=== PATIENT | male | born 1940 | race Caucasian/White ===

== ENCOUNTER 2021-04-13 09:50 | Day surgery (SDC) | payer OTHER ==
[2021-04-12 11:53] LABS: Absolute Lymphocytes (CBC) 1.9 K/uL (0.7-4.9); Hematocrit 42.8 % (39.6-49.0); Lymphocytes % 20.8 % (15.3-44.8); MPV 8.5 fL (7.6-11.3); RBC Red Blood Cell Count 4.53 M/uL (4.33-5.43)
[2021-04-12 11:57] LABS: Protime INR 0.98
[2021-04-12 12:04] LABS: Potassium 5.8 mmol/L (3.5-5.1)
--- NOTE | 2021-04-12 12:31 | RAD REPORT ---
EXAM DESCRIPTION: RAD - Chest Pa And Lat (2 Views) - 04/12/2021 11:43 am CLINICAL HISTORY: preop COMPARISON: Chest Pa And Lat (2 Views) dated 06/09/2020; Chest Pa And Lat (2 Views) dated 11/03/2018; C hest Pa And Lat (2 Views) dated 02/13/2018; Chest Pa And Lat (2 Views) dated 03/19/2017 FINDINGS: Normal heart size. No evidence of edema or pneumonia. No fractures are identified. Visuali zed upper abdomen is unremarkable. IMPRESSION: No acute cardiopulmonary disease.
[~2021-04-13 09:50] MED LIST: HEPA 1000U/500MLS 1,000 UNIT/500 ML BAG IV ONE
[2021-04-13] MEDS ORDERED: NA CHLORIDE 0.9% 500 ML ONE (10:07)
[2021-04-13] MEDS ORDERED: MIDAZOLAM HCL 2 MG/2 ML INJ ONE (10:53)
[2021-04-13] MEDS ORDERED: ATROPINE SULF 1 MG/10 ML SYR IV ONE (10:53)
[2021-04-13] MEDS ORDERED: NA CHLORIDE 0.9% 0 ML ONE (10:53)
[2021-04-13] MEDS ORDERED: FENTANYL CITR 100 MCG/2 ML ONE (10:53)
[2021-04-13] MEDS ORDERED: ACETYLCYST 20% 4 ML VIAL IH ONE (11:05)
[2021-04-13 12:42] VITALS: O2SAT 100
[2021-04-13 12:52] VITALS: BP 102/71; TEMP 96.4
--- NOTE | 2021-04-13 13:17 | OP ---
Date of Procedure: 04/13/2021 Surgeon: Rodrigo Garland MD Photographic Plate Maker: Mr. Wayne Puentes The patient was brought as an outpatient today on 04/13/2021 for a heart catheterization, selective c oronary arteriogram. Indication: Unstable angina and history of coronary artery disease. Procedure In Detail: Mr. Coleman was prepped and draped in routine sterile fashion. Given Versed a nd fentanyl for IV sedation. A 6-Fijian sheath was introduced in the right common femoral artery suc cessfully that was using the Seldinger technique and 10 cc of xylocaine. Angiography there was lindy l. Angio-Seal was used to close the case. Cirilo catheter left and right were used to do the lili terization. He had a normal left main. He had diffuse plaquing in the distal LAD. He had diffuse p laquing in the proximal LAD with about 20% to 30% stenosis proximally before the first diagonal. The circumflex itself had about a 30% stenosis in the mid circumflex. OM had about a 20% to 30% ostial circumflex stenosis. He had a patent LAD stent. He also had a patent RCA stent. RCA however was di ffusely diseased and was nondominant. He was left dominant. He tolerated the procedure well. There were no complications. Blood Loss: 5 mL. Postoperative Diagnosis: Moderate to severe coronary artery disease. Plan: To continue medical therapy. Anesthesia: Total conscious sedation was 45 minutes. The patient will remain in the hospital for 2 hours of bedrest and he will go home on his home medica tion. He will be seen in the office in the next 2 weeks. LENNY/HAN Voice ID: [id number] Report ID: [id number]
== END 2021-04-13 13:13 | disposition home or self-care (01) ==
LOC: CCL 09:50
DX: I25.110 Atherosclerotic heart disease of native coronary artery with unstable angina pectoris (principal); I65.21 Occlusion and stenosis of right carotid artery; I12.9 Hypertensive chronic kidney disease with stage 1 through stage 4 chronic kidney disease, or unspecified chronic kidney disease; E11.22 Type 2 diabetes mellitus with diabetic chronic kidney disease; N18.2 Chronic kidney disease, stage 2 (mild); E78.5 Hyperlipidemia, unspecified; Z95.5 Presence of coronary angioplasty implant and graft
CPT/HCPCS: 85025; 80048; 36415 ×2; 84132; 85610; 82947; 85730; 71046; 93454; C1893; C1760; J2250; J3010; J7040; J1644; J0583

== ENCOUNTER 2023-03-29 12:20 | Emergency (ER) | payer OTHER ==
--- OUTSIDE RECORDS SUMMARY | 2023-03-29 12:31 | XMS REPORT | Continuity of Care Document ---
:1940 Author Organization [facility] t Address [address] [facility] [address] [place] [address] Care Team Providers Name Role Phone Asked, No Pcp Primary Care Physician Unavailable Heriberto Venegas Attending Clinician Unavailable Tee Attending Clinician Unavailable Silas Ponce Attending Clinician [phone] Silas Ponce Attending Clinician Unavailable Olga Lew RN Attending Clinician Unavailable Only, Ang Db Test Attending Clinician Unavailable Gilberto Christianson Attending Clinician GILBERTO SIMPSON Attending Clinician Unavailable Heriberto Venegas Admitting Clinician Unavailable Tee Admitting Clinician Unavailable Payers Payer Name Policy Type Policy Number Effective Date Expiration Date S [facility] [id number] (MEDICARE REPLACEMENT/[employer] - PPO) COVID VACCINE ADMIN [id number] 2020-11-03 / TESTING 00:00:00 Problems Condition Condition Condition Status Onset Resolution Last Treating Co mments Source Name Details Category Date Date Treatment Clinician Date Tear of Tear of Problem Active Gi right Right 727 Orthope rotator Rotator 00:00: dic cuff Cuff 00 [facility] Tear of Tear of Problem Active Gi left Left 7-27 Orthope rotator Rotator 00:00: dic cuff Cuff 00 Sports [facility] Pain of Pain of Problem Active Gi right Right 7-25 Orth[facility] shoulder Shoulder 00:00: dic joint Joint 00 Sports Medic[facility] e Pain of Pain of Problem Active Gi left Left 7-25 Orth[facility] shoulder Shoulder 00:00: dic joint Joint 00 Sports Medic[facility] e 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 2-16 Or thope knee joint Knee Joint 00:00: di c 00 Sports Medicin e Diabetes Diabetes Problem Active Azale a mellitus Mellitus 4-07 Orthop e 00:00: dic 00 Sports Medic[facility] e Lumbosacra Lumbosacra Problem Active A bennieandia l l 4-07 Orthope spondylosi Spondylosi 00:00: di c s with s with 00 Sports radiculopa Radiculopa Me dicin thy thy e 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 00:00: dic 00 Sports Medicin e 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 00:00: di c itis itis 00 Sports Medicin e Lumbar Lumbar Problem Active Gi radiculopa Radiculopa 7-18 Or thope thy thy 00:00: dic 00 Sports Medic[facility] e Viral Viral Problem Active Gi hepatitis Hepatitis 7-15 Orth ope C C 00:00: dic 00 Sports Medic[facility] e Pain of Pain of Problem Active Gi left hip Left Hip 7-15 Orthop e joint Joint 00:00: dic 00 Sports Medicin e Allergies, Adverse Reactions, Alerts Allergy Allergy Status Severity Reaction(s) Onset Inactive Treating Comm ents Source Name Type Date Date Clinician No Known DA Active [facility] 06[facility]07 [facility] [place] NO KNOWN Drug Active [facility] Social History Social Habit Start Date Stop Date Quantity Comments Source Gender identity [facility] Exposure to Yes [facility] SARS-CoV-2 (event) [facility] Sex Assigned At [birth year] DANIEL Gregg [facility] Smoking Status Start Date Stop Date Source Never Smoker Gi [facility] Tobacco smoking consumption [facility] unknown Medications Ordered Filled Start Stop Current Ordering Indication Dosage Frequency Signature Comments Components Source Medication Medication Date Date Medication? Clinician (SIG) Name Name hydrocodone hydrocodone No hydrocodon Gi 7.5 7.5 2-01 e 7.5 Orthope mg-acetamin mg-acetamin 00:00: mg-acetami dic ophen 325 ophen 325 00 nophen 325 Sports mg tablet mg tablet mg tablet Medicin Take 1 Take 1 Take 1 e tablet by tablet by tablet by mouth every mouth every mouth four to six four to six every four hours as hours as to six needed for needed for hours as pain pain needed for pain No known 2020-10 No [facility] medications 2- [facility]y of 11:46: [address] No known 2020-10 No [facility] medications 2 ity of 11:46: [address] Voltaren 1 Voltaren 1 No Voltaren 1 Gi % topical % topical 1-24 % topical Orthope gel apply gel apply 00:00: gel apply dic 4g to 4g to 00 4g to Sports affected affected affected Med icin area 4 area 4 area 4 e times a day times a day times a as needed as needed day as for pain for pain needed for pain Voltaren 1 Voltaren 1 No Voltaren 1 Gi % topical % topical 1-24 % topical Orthope gel apply gel apply 00:00: gel apply dic 4g to 4g to 00 4g to Sports affected affected affected Med icin area 4 area 4 area 4 e times a day times a day times a as needed as needed day as for pain for pain needed for pain Voltaren 1 Voltaren 1 No Voltaren 1 Gi % topical % topical 1-24 % topical Orthope gel apply gel apply 00:00: gel apply dic 4g to 4g to 00 4g to Sports affected affected affected Med icin area 4 area 4 area 4 e times a day times a day times a as needed as needed day as for pain for pain needed for pain Voltaren 1 Voltaren 1 No Voltaren 1 Gi % topical % topical 1-24 % topical Orthope gel apply gel apply 00:00: gel apply dic 4g to 4g to 00 4g to Sports affected affected affected Med icin area 4 area 4 area 4 e times a day times a day times a as needed as needed day as for pain for pain needed for pain Voltaren 1 Voltaren 1 No Voltaren 1 Gi % topical % topical 1-24 % topical Orthope gel apply gel apply 00:00: gel apply dic 4g to 4g to 00 4g to Sports affected affected affected Med icin area 4 area 4 area 4 e times a day times a day times a as needed as needed day as for pain for pain needed for pain tramadol 50 tramadol 50 No tramadol Gi mg tablet mg tablet 7-25 50 mg Orth ope TAKE 1 TAKE 1 00:00: tablet dic TABLET PO Q TABLET PO Q 00 TAKE 1 Sports 4-6H PRN 4-6H PRN TABLET PO Me dicin PAIN PAIN Q 4-6H PRN e PAIN prednisone prednisone No prednisone Gi 10 mg 10 mg 7-18 10 mg Orthope tablet TAKE tablet TAKE 00:00: tablet dic TABLETS TABLETS 00 TAKE Sports 6,5,4,3,2,1 6,5,4,3,2,1 TABLETS Medicin 6,5,4,3,2, e 1 prednisone prednisone No prednisone Gi 10 mg 10 mg 7-18 10 mg Orthope tablet TAKE tablet TAKE 00:00: tablet dic TABLETS TABLETS 00 TAKE Sports 6,5,4,3,2,1 6,5,4,3,2,1 TABLETS Medicin 6,5,4,3,2, e 1 prednisone prednisone No prednisone Gi 10 mg 10 mg 7-18 10 mg Orthope tablet TAKE tablet TAKE 00:00: tablet dic TABLETS TABLETS 00 TAKE Sports 6,5,4,3,2,1 6,5,4,3,2,1 TABLETS Medicin 6,5,4,3,2, e 1 prednisone prednisone No prednisone Gi 10 mg 10 mg 7-18 10 mg Orthope tablet TAKE tablet TAKE 00:00: tablet dic TABLETS TABLETS 00 TAKE Sports 6,5,4,3,2,1 6,5,4,3,2,1 TABLETS Medicin 6,5,4,3,2, e 1 prednisone prednisone 2016-0 No prednisone Gi 10 mg 10 mg 7-18 10 mg Orthope tablet TAKE tablet TAKE 00:00: tablet dic TABLETS TABLETS 00 TAKE Sports 6,5,4,3,2,1 6,5,4,3,2,1 TABLETS Medicin 6,5,4,3,2, e 1 famotidine famotidine No famotidine Gi 20 mg 20 mg 20 mg Orthope tablet RX tablet RX tablet RX dic by other MD by other MD by other Sports MD Medicin e Farxiga 10 Farxiga 10 No Farxiga 10 Gi mg tablet mg tablet mg tablet Orthope dic Sports Medicin e Farxiga 5 Farxiga 5 No Farxiga 5 Gi mg tablet mg tablet mg tablet Orthope dic Sports Medicin e gabapentin gabapentin No gabapentin Gi 100 mg 100 mg 100 mg Orthope capsule capsule capsule dic Sports Medicin e hydrocodone hydrocodone No hydrocodon Gi 10 10 e 10 Orthope mg-acetamin mg-acetamin mg-acetami dic ophen 325 ophen 325 nophen 325 Sports mg tablet mg tablet mg tablet Medicin e hydrocodone hydrocodone No hydrocodon Gi 7.5 7.5 e 7.5 Orthope mg-acetamin mg-acetamin mg-acetami dic ophen 325 ophen 325 nophen 325 Sports mg tablet mg tablet mg tablet Medicin Take 1 Take 1 Take 1 e tablet by tablet by tablet by mouth every mouth every mouth four to six four to six every four hours as hours as to six needed for needed for hours as pain pain needed for pain insulin insulin No insulin Gi lispro lispro lispro Orthope (U-100) 100 (U-100) 100 (U-100) dic unit/mL unit/mL 100 Sports subcutaneou subcutaneou unit/mL Medicin s pen s pen subcutaneo e us pen levocetiriz levocetiriz No levocetiri Gi ine 5 mg ine 5 mg zine 5 mg Or thope tablet tablet tablet dic Sports Medicin e lisinopril lisinopril No lisinopril Gi 10 mg 10 mg 10 mg Orthope tablet tablet tablet dic Sports Medicin e lisinopril lisinopril No lisinopril Gi 20 mg 20 mg 20 mg Orthope tablet RX tablet RX tablet RX dic by other MD by other MD by other Sports Medicin e lisinopril lisinopril No lisinopril Gi 5 mg tablet 5 mg tablet 5 mg O rthope tablet dic Sports Medicin e Metamucil Metamucil No Metamucil Gi 0.4 gram 0.4 gram 0.4 gram Ort hope capsule RX capsule RX capsule RX dic by other MD by other MD by other Sports Medicwilbur stark metoprolol metoprolol No metoprolol Gi succinate succinate succinate Orthope ER 50 mg ER 50 mg ER 50 mg dic tablet,exte tablet,exte tablet,ext Sports nded nded ended Medicin release 24 release 24 release 24 e hr RX by hr RX by hr RX by other MD sulema leone MD Mobic 15 mg Mobic 15 mg No 1 Q1D Mobic 15 Gi tablet Take tablet Take mg tablet Orthope 1 tablet 1 tablet Take 1 dic every day every day tablet Spo rts by oral by oral every day Medi florin route. route. by oral e route. nateglinide nateglinide No nateglinid Gi 60 mg 60 mg e 60 mg Orthope tablet tablet tablet dic Sports Medicin e Novolog Mix Novolog Mix No Novolog Gi 70-30 U-100 70-30 U-100 Mix 70-30 Orthope Insulin 100 Insulin 100 U-100 dic unit/mL unit/mL Insulin Sports subcutaneou subcutaneou 100 M edicin s solution s solution unit/mL e RX by other RX by other hollie CLAYTON MD us solution RX by other ondansetron ondansetron No ondansetro Gi 4 mg 4 mg n 4 mg Orthope disintegrat disintegrat disintegra dic ing tablet ing tablet ting Spo rts RX by other RX by other tablet RX Medicwilbur CLAYTON MD by other e ondansetron ondansetron No ondansetro Gi HCl 4 mg HCl 4 mg n HCl 4 mg O rthope tablet tablet tablet dic Sports Medicin e pioglitazon pioglitazon No pioglitazo Gi e 15 mg e 15 mg ne 15 mg Ortho pe tablet RX tablet RX tablet RX dic by other MD by other MD by other Sports Medicin e Restasis Restasis No Restasis Aza umesh 0.05 % eye 0.05 % eye 0.05 % eye Orthope drops in a drops in a drops in a dic dropperette dropperette dropperett Sports RX by other RX by other e RX by Emma CLAYTON MD other e rosuvastati rosuvastati No rosuvastat Gi n 10 mg n 10 mg in 10 mg Ortho pe tablet RX tablet RX tablet RX dic by other MD by other MD by other Sports Medicin e tamsulosin tamsulosin No tamsulosin Gi 0.4 mg 0.4 mg 0.4 mg Orthope capsule capsule capsule dic Sports Medicin e Toujeo Max Toujeo Max No Toujeo Max Gi U-300 U-300 U-300 Orthope SoloStar SoloStar SoloStar dic 300 unit/mL 300 unit/mL 300 S ports (3 mL) (3 mL) unit/mL (3 Medic in subcutaneou subcutaneou mL) e s insulin s insulin subcutaneo pen pen us insulin pen Tradjenta 5 Tradjenta 5 No Tradjenta Gi mg tablet mg tablet 5 mg Ortho pe tablet dic Sports Medicin e tramadol 50 tramadol 50 No tramadol Gi mg tablet mg tablet 50 mg Orth ope TAKE 1 TAKE 1 tablet dic TABLET PO Q TABLET PO Q TAKE 1 Sports 4-6H PRN 4-6H PRN TABLET PO Me dicin PAIN PAIN Q 4-6H PRN e PAIN Victoza Victoza No Victoza Gi 2-Celso 0.6 2-Celso 0.6 2-Celso 0.6 Orthope mg/0.1 mL mg/0.1 mL mg/0.1 mL dic (18 mg/3 (18 mg/3 (18 mg/3 Spo rts mL) mL) mL) Medicin subcutaneou subcutaneou subcutaneo e s pen s pen us pen injector RX injector RX injector by other MD by other MD RX by other MD amlodipine amlodipine No amlodipine Gi 10 mg 10 mg 10 mg Orthope tablet tablet tablet dic Sports Medicin e amlodipine amlodipine No amlodipine Gi 5 mg tablet 5 mg tablet 5 mg O rthope tablet dic Sports Medicin e amoxicillin amoxicillin No amoxicilli Gi 500 mg 500 mg n 500 mg Orthope capsule capsule capsule dic Sports Medicin e aspirin 81 aspirin 81 No aspirin 81 Gi mg chewable mg chewable mg O rthope tablet RX tablet RX chewable d ic by other MD by other MD tablet RX Sports by other Medicin MD stark Colcrys 0.6 Colcrys 0.6 No Colcrys Gi mg tablet mg tablet 0.6 mg Ort hope RX by other RX by other tablet RX dic MD by other Sports Medicin e doxycycline doxycycline No doxycyclin Gi hyclate 100 hyclate 100 e hyclate Orthope mg capsule mg capsule 100 mg d ic capsule Sports Medicin e famotidine famotidine No famotidine Gi 20 mg 20 mg 20 mg Orthope tablet RX tablet RX tablet RX dic by other MD by other MD by other Sports Medicin e Farxiga 10 Farxiga 10 No Farxiga 10 Gi mg tablet mg tablet mg tablet Orthope dic Sports Medicin e Farxiga 5 Farxiga 5 No Farxiga 5 Gi mg tablet mg tablet mg tablet Orthope dic Sports Medicin e gabapentin gabapentin No gabapentin Gi 100 mg 100 mg 100 mg Orthope capsule capsule capsule dic Sports Medicin e hydrocodone hydrocodone No hydrocodon Gi 10 10 e 10 Orthope mg-acetamin mg-acetamin mg-acetami dic ophen 325 ophen 325 nophen 325 Sports mg tablet mg tablet mg tablet Medicin e hydrocodone hydrocodone No hydrocodon Gi 7.5 7.5 e 7.5 Orthope mg-acetamin mg-acetamin mg-acetami dic ophen 325 ophen 325 nophen 325 Sports mg tablet mg tablet mg tablet Medicin Take 1 Take 1 Take 1 e tablet by tablet by tablet by mouth every mouth every mouth four to six four to six every four hours as hours as to six needed for needed for hours as pain pain needed for pain insulin insulin No insulin Gi lispro lispro lispro Orthope (U-100) 100 (U-100) 100 (U-100) dic unit/mL unit/mL 100 Sports subcutaneou subcutaneou unit/mL Medicin s pen s pen subcutaneo e us pen levocetiriz levocetiriz No levocetiri Gi ine 5 mg ine 5 mg zine 5 mg Or thope tablet tablet tablet dic Sports Medicin e lisinopril lisinopril No lisinopril Gi 10 mg 10 mg 10 mg Orthope tablet tablet tablet dic Sports Medicin e lisinopril lisinopril No lisinopril Gi 20 mg 20 mg 20 mg Orthope tablet RX tablet RX tablet RX dic by other MD by other MD by other Sports Medicin e lisinopril lisinopril No lisinopril Gi 5 mg tablet 5 mg tablet 5 mg O rthope tablet dic Sports Medicin e meloxicam meloxicam No meloxicam Gi 15 mg 15 mg 15 mg Orthope tablet Take tablet Take tablet dic 1 tablet 1 tablet Take 1 Sport s every day every day tablet Med icin by oral by oral every day e route. route. by oral route. Metamucil Metamucil No Metamucil Gi 0.4 gram 0.4 gram 0.4 gram Ort hope capsule RX capsule RX capsule RX dic by other MD by other MD by other Sports Medicin e metoprolol metoprolol No metoprolol Gi succinate succinate succinate Orthope ER 50 mg ER 50 mg ER 50 mg dic tablet,exte tablet,exte tablet,ext Sports nded nded ended Medicin release 24 release 24 release 24 e hr RX by hr RX by hr RX by other other MD sulema CLAYTON nateglinide nateglinide No nateglinid Gi 60 mg 60 mg e 60 mg Orthope tablet tablet tablet dic Sports Medicin e Novolog Mix Novolog Mix No Novolog Gi 70-30 U-100 70-30 U-100 Mix 70-30 Orthope Insulin 100 Insulin 100 U-100 dic unit/mL unit/mL Insulin Sports subcutaneou subcutaneou 100 M edicin s solution s solution unit/mL e RX by other RX by other hollie CLAYTON MD us solution RX by other ondansetron ondansetron No ondansetro Gi 4 mg 4 mg n 4 mg Orthope disintegrat disintegrat disintegra dic ing tablet ing tablet ting Spo rts RX by other RX by other tablet RX Medicwilbur CLAYTON MD by other e MD ondansetron ondansetron No ondansetro Gi HCl 4 mg HCl 4 mg n HCl 4 mg O rthope tablet tablet tablet dic Sports Medicin e pioglitazon pioglitazon No pioglitazo Gi e 15 mg e 15 mg ne 15 mg Ortho pe tablet RX tablet RX tablet RX dic by other MD by other MD by other Sports MD Medicin e Restasis Restasis No Restasis Aza umesh 0.05 % eye 0.05 % eye 0.05 % eye Orthope drops in a drops in a drops in a dic dropperette dropperette dropperett Sports RX by other RX by other e RX by Emma stark rosuvastati rosuvastati No rosuvastat Gi n 10 mg n 10 mg in 10 mg Ortho pe tablet RX tablet RX tablet RX dic by other MD by other MD by other Sports Medicin e tamsulosin tamsulosin No tamsulosin Gi 0.4 mg 0.4 mg 0.4 mg Orthope capsule capsule capsule dic Sports Medicin e Toujeo Max Toujeo Max No Toujeo Max Gi U-300 U-300 U-300 Orthope SoloStar SoloStar SoloStar dic 300 unit/mL 300 unit/mL 300 S ports (3 mL) (3 mL) unit/mL (3 Medic in subcutaneou subcutaneou mL) e s insulin s insulin subcutaneo pen pen us insulin pen Tradjenta 5 Tradjenta 5 No Tradjenta Gi mg tablet mg tablet 5 mg Ortho pe tablet dic Sports Medicin e tramadol 50 tramadol 50 No tramadol Gi mg tablet mg tablet 50 mg Orth ope TAKE 1 TAKE 1 tablet dic TABLET PO Q TABLET PO Q TAKE 1 Sports 4-6H PRN 4-6H PRN TABLET PO Me dicin PAIN PAIN Q 4-6H PRN e PAIN Victoza Victoza No Victoza Gi 2-Celso 0.6 2-Celso 0.6 2-Celso 0.6 Orthope mg/0.1 mL mg/0.1 mL mg/0.1 mL dic (18 mg/3 (18 mg/3 (18 mg/3 Spo rts mL) mL) mL) Medicin subcutaneou subcutaneou subcutaneo e s pen s pen us pen injector RX injector RX injector by other MD by other MD RX by other MD amlodipine amlodipine No amlodipine Gi 10 mg 10 mg 10 mg Orthope tablet tablet tablet dic Sports Medicin e amlodipine amlodipine No amlodipine Gi 5 mg tablet 5 mg tablet 5 mg O rthope tablet dic Sports Medicin e amoxicillin amoxicillin No amoxicilli Gi 500 mg 500 mg n 500 mg Orthope capsule capsule capsule dic Sports Medicin e aspirin 81 aspirin 81 No aspirin 81 Gi mg chewable mg chewable mg O rthope tablet RX tablet RX chewable d ic by other MD by other MD tablet RX Sports by other Medicin MD stark Colcrys 0.6 Colcrys 0.6 No Colcrys Gi mg tablet mg tablet 0.6 mg Ort hope RX by other RX by other tablet RX dic MD by other Sports Medicin e doxycycline doxycycline No doxycyclin Gi hyclate 100 hyclate 100 e hyclate Orthope mg capsule mg capsule 100 mg d ic capsule Sports Medicin e famotidine famotidine No famotidine Gi 20 mg 20 mg 20 mg Orthope tablet RX tablet RX tablet RX dic by other MD by other MD by other Sports Medicin e Farxiga 10 Farxiga 10 No Farxiga 10 Gi mg tablet mg tablet mg tablet Orthope dic Sports Medicin e Farxiga 5 Farxiga 5 No Farxiga 5 Gi mg tablet mg tablet mg tablet Orthope dic Sports Medicin e gabapentin gabapentin No gabapentin Gi 100 mg 100 mg 100 mg Orthope capsule capsule capsule dic Sports Medicin e hydrocodone hydrocodone No hydrocodon Gi 10 10 e 10 Orthope mg-acetamin mg-acetamin mg-acetami dic ophen 325 ophen 325 nophen 325 Sports mg tablet mg tablet mg tablet Medicin e hydrocodone hydrocodone No hydrocodon Gi 7.5 7.5 e 7.5 Orthope mg-acetamin mg-acetamin mg-acetami dic ophen 325 ophen 325 nophen 325 Sports mg tablet mg tablet mg tablet Medicin Take 1 Take 1 Take 1 e tablet by tablet by tablet by mouth every mouth every mouth four to six four to six every four hours as hours as to six needed for needed for hours as pain pain needed for pain insulin insulin No insulin Gi lispro lispro lispro Orthope (U-100) 100 (U-100) 100 (U-100) dic unit/mL unit/mL 100 Sports subcutaneou subcutaneou unit/mL Medicin s pen s pen subcutaneo e us pen levocetiriz levocetiriz No levocetiri Gi ine 5 mg ine 5 mg zine 5 mg Or thope tablet tablet tablet dic Sports Medicin e lisinopril lisinopril No lisinopril Gi 10 mg 10 mg 10 mg Orthope tablet tablet tablet dic Sports Medicin e lisinopril lisinopril No lisinopril Gi 20 mg 20 mg 20 mg Orthope tablet RX tablet RX tablet RX dic by other MD by other MD by other Sports MD Medicin e lisinopril lisinopril No lisinopril Gi 5 mg tablet 5 mg tablet 5 mg O rthope tablet dic Sports Medicin e meloxicam meloxicam No meloxicam Gi 15 mg 15 mg 15 mg Orthope tablet Take tablet Take tablet dic 1 tablet 1 tablet Take 1 Sport s every day every day tablet Med icin by oral by oral every day e route. route. by oral route. Metamucil Metamucil No Metamucil Gi 0.4 gram 0.4 gram 0.4 gram Ort hope capsule RX capsule RX capsule RX dic by other MD by other MD by other Sports Medicin e metoprolol metoprolol No metoprolol Gi succinate succinate succinate Orthope ER 50 mg ER 50 mg ER 50 mg dic tablet,exte tablet,exte tablet,ext Sports nded nded ended Medicin release 24 release 24 release 24 e hr RX by hr RX by hr RX by other MD other other nateglinide nateglinide No nateglinid Gi 60 mg 60 mg e 60 mg Orthope tablet tablet tablet dic Sports Medicin e Novolog Mix Novolog Mix No Novolog Gi 70-30 U-100 70-30 U-100 Mix 70-30 Orthope Insulin 100 Insulin 100 U-100 dic unit/mL unit/mL Insulin Sports subcutaneou subcutaneou 100 M edicin s solution s solution unit/mL e RX by other RX by other subcutaneo MD us solution RX by other ondansetron ondansetron No ondansetro Gi 4 mg 4 mg n 4 mg Orthope disintegrat disintegrat disintegra dic ing tablet ing tablet ting Spo rts RX by other RX by other tablet RX Emma CLAYTON MD by other e ondansetron ondansetron No ondansetro Gi HCl 4 mg HCl 4 mg n HCl 4 mg O rthope tablet tablet tablet dic Sports Medicin e pioglitazon pioglitazon No pioglitazo Gi e 15 mg e 15 mg ne 15 mg Ortho pe tablet RX tablet RX tablet RX dic by other MD by other MD by other Sports Medicin e Restasis Restasis No Restasis Aza umesh 0.05 % eye 0.05 % eye 0.05 % eye Orthope drops in a drops in a drops in a dic dropperette dropperette dropperett Sports RX by other RX by other e RX by Emma CLAYTON MD other MD e rosuvastati rosuvastati No rosuvastat Gi n 10 mg n 10 mg in 10 mg Ortho pe tablet RX tablet RX tablet RX dic by other MD by other MD by other Sports MD Medicin e tamsulosin tamsulosin No tamsulosin Gi 0.4 mg 0.4 mg 0.4 mg Orthope capsule capsule capsule dic Sports Medicin e Toujeo Max Toujeo Max No Toujeo Max Gi U-300 U-300 U-300 Orthope SoloStar SoloStar SoloStar dic 300 unit/mL 300 unit/mL 300 S ports (3 mL) (3 mL) unit/mL (3 Medic in subcutaneou subcutaneou mL) e s insulin s insulin subcutaneo pen pen us insulin pen Tradjenta 5 Tradjenta 5 No Tradjenta Gi mg tablet mg tablet 5 mg Ortho pe tablet dic Sports Medicin e tramadol 50 tramadol 50 No tramadol Gi mg tablet mg tablet 50 mg Orth ope TAKE 1 TAKE 1 tablet dic TABLET PO Q TABLET PO Q TAKE 1 Sports 4-6H PRN 4-6H PRN TABLET PO Me dicin PAIN PAIN Q 4-6H PRN e PAIN Victoza Victoza No Victoza Gi 2-Celso 0.6 2-Celso 0.6 2-Celso 0.6 Orthope mg/0.1 mL mg/0.1 mL mg/0.1 mL dic (18 mg/3 (18 mg/3 (18 mg/3 Spo rts mL) mL) mL) Medicin subcutaneou subcutaneou subcutaneo e s pen s pen us pen injector RX injector RX injector by other MD by other MD RX by other aspirin 81 aspirin 81 No aspirin 81 Gi mg chewable mg chewable mg O rthope tablet RX tablet RX chewable d ic by other MD by other tablet RX Sports by other Emma stark Colcrys 0.6 Colcrys 0.6 No Colcrys Gi mg tablet mg tablet 0.6 mg Ort hope RX by other RX by other tablet RX dic MD by other Sports MD Emma stark Crestor 10 Crestor 10 No Crestor 10 Gi mg tablet mg tablet mg tablet Orthope RX by other RX by other RX by dic MD CLAYTON other MD [place] Medicin e famotidine famotidine No famotidine Gi 20 mg 20 mg 20 mg Orthope tablet RX tablet RX tablet RX dic by other MD by other MD by other Sports MD Emma stark lisinopril lisinopril No lisinopril Gi 20 mg 20 mg 20 mg Orthope tablet RX tablet RX tablet RX dic by other MD by other MD by other Sports MD Emma stark Metamucil Metamucil No Metamucil Gi 0.4 gram 0.4 gram 0.4 gram Ort hope capsule RX capsule RX capsule RX dic by other MD by other MD by other Sports Medicin e metoprolol metoprolol No metoprolol Gi succinate succinate succinate Orthope ER 50 mg ER 50 mg ER 50 mg dic tablet,exte tablet,exte tablet,ext Sports nded nded ended Medicin release 24 release 24 release 24 e hr RX by hr RX by hr RX by other MD sulema leone MD Novolog Mix Novolog Mix No Novolog Gi 70-30 U-100 70-30 U-100 Mix 70-30 Orthope Insulin 100 Insulin 100 U-100 dic unit/mL unit/mL Insulin Sports subcutaneou subcutaneou 100 M edicin s solution s solution unit/mL e RX by other RX by other subcutaneo MD CLAYTON us solution RX by other ondansetron ondansetron No ondansetro Gi 4 mg 4 mg n 4 mg Orthope disintegrat disintegrat disintegra dic ing tablet ing tablet ting Spo rts RX by other RX by other tablet RX Emma CLAYTON MD by other e MD farzana yanes No pioglitazo Gi e 15 mg e 15 mg ne 15 mg Ortho pe tablet RX tablet RX tablet RX dic by other MD by other MD by other Sports Medicin e Restasis Restasis No Restasis Aza umesh 0.05 % eye 0.05 % eye 0.05 % eye Orthope drops in a drops in a drops in a dic dropperette dropperette dropperett Sports RX by other RX by other e RX by Emma leone MD e Victoza Victoza No Victoza Gi 2-Celso 0.6 2-Celso 0.6 2-Celso 0.6 Orthope mg/0.1 mL mg/0.1 mL mg/0.1 mL dic (18 mg/3 (18 mg/3 (18 mg/3 Spo rts mL) mL) mL) Medicin subcutaneou subcutaneou subcutaneo e s pen s pen us pen injector RX injector RX injector by other MD by other MD RX by other amlodipine amlodipine No amlodipine Gi 10 mg 10 mg 10 mg Orthope tablet tablet tablet dic Sports Medicin e amlodipine amlodipine No amlodipine Gi 5 mg tablet 5 mg tablet 5 mg O rthope tablet dic Sports Medicin e aspirin 81 aspirin 81 No aspirin 81 Gi mg chewable mg chewable mg O rthope tablet RX tablet RX chewable d ic by other MD by other tablet RX Sports by other Emma stark Colcrys 0.6 Colcrys 0.6 No Colcrys Gi mg tablet mg tablet 0.6 mg Ort hope RX by other RX by other tablet RX dic MD CLAYTON by other Sports MD Emma stark doxycycline doxycycline No doxycyclin Gi hyclate 100 hyclate 100 e hyclate Orthope mg capsule mg capsule 100 mg d ic capsule Sports Medicin e famotidine famotidine No famotidine Gi 20 mg 20 mg 20 mg Orthope tablet RX tablet RX tablet RX dic by other MD by other MD by other Sports MD Medicin e Farxiga 5 Farxiga 5 No Farxiga 5 Gi mg tablet mg tablet mg tablet Orthope dic Sports Medicin e gabapentin gabapentin No gabapentin Gi 100 mg 100 mg 100 mg Orthope capsule capsule capsule dic Sports Medicin e hydrocodone hydrocodone No hydrocodon Gi 10 10 e 10 Orthope mg-acetamin mg-acetamin mg-acetami dic ophen 325 ophen 325 nophen 325 Sports mg tablet mg tablet mg tablet Medicin e hydrocodone hydrocodone No hydrocodon Gi 7.5 7.5 e 7.5 Orthope mg-acetamin mg-acetamin mg-acetami dic ophen 325 ophen 325 nophen 325 Sports mg tablet mg tablet mg tablet Medicin Take 1 Take 1 Take 1 e tablet by tablet by tablet by mouth every mouth every mouth four to six four to six every four hours as hours as to six needed for needed for hours as pain pain needed for pain insulin insulin No insulin Gi lispro lispro lispro Orthope (U-100) 100 (U-100) 100 (U-100) dic unit/mL unit/mL 100 Sports subcutaneou subcutaneou unit/mL Medicin s pen s pen subcutaneo e us pen levocetiriz levocetiriz No levocetiri Gi ine 5 mg ine 5 mg zine 5 mg Or thope tablet tablet tablet dic Sports Medicin e lisinopril lisinopril No lisinopril Gi 10 mg 10 mg 10 mg Orthope tablet tablet tablet dic Sports Medicin e lisinopril lisinopril No lisinopril Gi 20 mg 20 mg 20 mg Orthope tablet RX tablet RX tablet RX dic by other MD by other MD by other Sports Medicin e lisinopril lisinopril No lisinopril Gi 5 mg tablet 5 mg tablet 5 mg O rthope tablet dic Sports Medicin e meloxicam meloxicam No meloxicam Gi 15 mg 15 mg 15 mg Orthope tablet tablet tablet dic Sports Medicin e Metamucil Metamucil No Metamucil Gi 0.4 gram 0.4 gram 0.4 gram Ort hope capsule RX capsule RX capsule RX dic by other MD by other MD by other Sports MD Medicin e metoprolol metoprolol No metoprolol Gi succinate succinate succinate Orthope ER 50 mg ER 50 mg ER 50 mg dic tablet,exte tablet,exte tablet,ext Sports nded nded ended Medicin release 24 release 24 release 24 e hr RX by hr RX by hr RX by other MD sulema leone MD nateglinide nateglinide No nateglinid Gi 60 mg 60 mg e 60 mg Orthope tablet tablet tablet dic Sports Medicin e Novolog Mix Novolog Mix No Novolog Gi 70-30 U-100 70-30 U-100 Mix 70-30 Orthope Insulin 100 Insulin 100 U-100 dic unit/mL unit/mL Insulin Sports subcutaneou subcutane 100 M edicin s solution s solution unit/mL e RX by other RX by other hollie CLAYTON MD us solution RX by other ondansetron ondansetron No ondansetro Gi 4 mg 4 mg n 4 mg Orthope disintegrat disintegrat disintegra dic ing tablet ing tablet ting Spo rts RX by other RX by other tablet RX Medicin MD CLAYTON by other e ondansetron ondansetron No ondansetro Gi HCl 4 mg HCl 4 mg n HCl 4 mg O rthope tablet tablet tablet dic Sports Medicin e pioglitazon pioglitazon No pioglitazo Gi e 15 mg e 15 mg ne 15 mg Ortho pe tablet RX tablet RX tablet RX dic by other MD by other MD by other Sports Medicin e Restasis Restasis No Restasis Aza umesh 0.05 % eye 0.05 % eye 0.05 % eye Orthope drops in a drops in a drops in a dic dropperette dropperette dropperett Sports RX by other RX by other e RX by Emma stark rosuvastati rosuvastati No rosuvastat Gi n 10 mg n 10 mg in 10 mg Ortho pe tablet RX tablet RX tablet RX dic by other MD by other MD by other Sports Medicin e tamsulosin tamsulosin No tamsulosin Gi 0.4 mg 0.4 mg 0.4 mg Orthope capsule capsule capsule dic Sports Medicin e Toujeo Max Toujeo Max No Toujeo Max Gi U-300 U-300 U-300 Orthope SoloStar SoloStar SoloStar dic 300 unit/mL 300 unit/mL 300 S ports (3 mL) (3 mL) unit/mL (3 Medic in subcutaneou subcutaneou mL) e s insulin s insulin subcutaneo pen pen us insulin pen Tradjenta 5 Tradjenta 5 No Tradjenta Gi mg tablet mg tablet 5 mg Ortho pe tablet dic Sports Medicin e tramadol 50 tramadol 50 No tramadol Gi mg tablet mg tablet 50 mg Orth ope TAKE 1 TAKE 1 tablet dic TABLET PO Q TABLET PO Q TAKE 1 Sports 4-6H PRN 4-6H PRN TABLET PO Me dicin PAIN PAIN Q 4-6H PRN e PAIN Victoza Victoza No Victoza Gi 2-Celso 0.6 2-Celso 0.6 2-Celso 0.6 Orthope mg/0.1 mL mg/0.1 mL mg/0.1 mL dic (18 mg/3 (18 mg/3 (18 mg/3 Spo rts mL) mL) mL) Medicin subcutaneou subcutaneou subcutaneo e s pen s pen us pen injector RX injector RX injector by other MD by other MD RX by other amlodipine amlodipine No amlodipine Gi 10 mg 10 mg 10 mg Orthope tablet tablet tablet dic Sports Medicin e amlodipine amlodipine No amlodipine Gi 5 mg tablet 5 mg tablet 5 mg O rthope tablet dic Sports Medicin e amoxicillin amoxicillin No amoxicilli Gi 500 mg 500 mg n 500 mg Orthope capsule capsule capsule dic Sports Medicin e aspirin 81 aspirin 81 No aspirin 81 Gi mg chewable mg chewable mg O rthope tablet RX tablet RX chewable d ic by other MD by other tablet RX Sports by other Medicwilbur stark Colcrys 0.6 Colcrys 0.6 No Colcrys Gi mg tablet mg tablet 0.6 mg Ort hope RX by other RX by other tablet RX dic MD CLAYTON by other Sports Medicin e doxycycline doxycycline No doxycyclin Gi hyclate 100 hyclate 100 e hyclate Orthope mg capsule mg capsule 100 mg d ic capsule Sports Medicin e Immunizations Ordered Immunization Filled Immunization Date Status [facility] [facility] 12yr+ 00:00:00 Medical C enter (Pfizer/BioNTech)(IM M601) Covid-19 Vaccine 2020-12-[address] [facility] MRNA (PF) 12yr+ 00:00:00 Medical C enter (Pfizer/BioNTech)(IM M601) Covid-19 Vaccine 2020-12-[address] [facility] MRNA (PF) 12yr+ 00:00:00 Medical C enter (Pfizer/BioNTech)(IM M601) Covid-19 Vaccine 2020-11-[address] [facility] MRNA (PF) 12yr+ 00:00:00 Medical C enter (Pfizer/BioNTech)(IM M601) Covid-19 Vaccine 2020-11-[address] [facility] MRNA (PF) 12yr+ 00:00:00 Medical C enter (Pfizer/BioNTech)(IM M601) Covid-19 Vaccine 2020-11-[address] [facility] MRNA (PF) 12yr+ 00:00:00 Medical C enter (Pfizer/BioNTech)(IM M601) Vital Signs Vital Name Observation Time Observation Value Comments Source Height 2023-01-04 00:00:00 67 [in_i] [facility] BMI (Body Mass 2023-01-04 00:00:00 32.4 kg/m2 Gi Orthopedic Index) Sports Medicine Body Weight 2023-01-04 00:00:00 207 [lb_av] [facility] Height 2022-09-12 00:00:00 67 [in_i] [facility] BMI (Body Mass 2022-09-12 00:00:00 32.4 kg/m2 Gi Orthopedic Index) Sports Medicine Body Weight 2022-09-12 00:00:00 207 [lb_av] [facility] Height 2022-05-09 00:00:00 67 [in_i] [facility] BMI (Body Mass 2022-05-09 00:00:00 32.4 kg/m2 Gi Orthopedic Index) Sports Medicine Body Weight 2022-05-09 00:00:00 207 [lb_av] [facility] Height 2022-05-02 00:00:00 67 [in_i] [facility] BMI (Body Mass 2022-05-02 00:00:00 32.4 kg/m2 Gi Orthopedic Index) Sports Medicine Body Weight 2022-05-02 00:00:00 207 [lb_av] [facility] Procedures Procedure Date / Time Performed Performing Clinician Sour e XR, knee, 3 view 2023-01-04 00:00:00 Gi [facility] Sports Medicine MRI, shoulder, w/o 2022-05-02 00:00:00 [place] Or [facility] contrast Sports Medicine [id number] 2021-09-21 00:00:00 [facility] Or [facility] Plan of Care Planned Activity Planned Date Details Comments Source Future Scheduled Test 2023-06-07 Influenza Vaccine [facility] 00:00:00 (Season Ended) [code Medical Center = Influenza Vaccine (Season Ended)] Future Scheduled Test 2023-06-07 Influenza Vaccine [facility] 00:00:00 (Season Ended) [code Medical Center = Influenza Vaccine (Season Ended)] Future Scheduled Test 2023-06-07 Influenza Vaccine [facility] 00:00:00 (Season Ended) [code Medical Center = Influenza Vaccine (Season Ended)] Future Scheduled Test 2023-03-27 COVID-19 VACCINE (#1) [facility] 02:28:46 [code = COVID-19 VACCINE (#1)] Future Scheduled Test 2023-03-27 SHINGLES VACCINES (1 [facility] 02:28:46 of 2) [code = SHINGLES VACCINES (1 of 2)] Future Scheduled Test 2023-03-27 65+ PNEUMOCOCCAL [facility] 02:28:46 VACCINE (1 - PCV) [code = 65+ PNEUMOCOCCAL VACCINE (1 - PCV)] Future Scheduled Test 2023-03-27 INFLUENZA VACCINE [facility] 02:28:46 [code = INFLUENZA VACCINE] Future Scheduled Test 2023-01-09 65+ PNEUMOCOCCAL [facility] 02:30:34 VACCINE (1 - PCV) [code = 65+ PNEUMOCOCCAL VACCINE (1 - PCV)] Future Scheduled Test 2023-01-09 INFLUENZA VACCINE [facility] 02:30:34 [code = INFLUENZA VACCINE] Future Scheduled Test 2023-01-09 COVID-19 VACCINE (#1) [facility] 02:30:34 [code = COVID-19 VACCINE (#1)] Future Scheduled Test 2023-01-09 SHINGLES VACCINES (1 [facility] 02:30:34 of 2) [code = SHINGLES VACCINES (1 of 2)] Future Scheduled Test 2023-01-09 65+ PNEUMOCOCCAL [facility] 02:30:34 VACCINE (1 - PCV) [code = 65+ PNEUMOCOCCAL VACCINE (1 - PCV)] Future Scheduled Test 2023-01-09 INFLUENZA VACCINE [facility] 02:30:34 [code = INFLUENZA VACCINE] Future Scheduled Test 2023-01-09 COVID-19 VACCINE (#1) [facility] 02:30:34 [code = COVID-19 VACCINE (#1)] Future Scheduled Test 2023-01-09 SHINGLES VACCINES (1 [facility] 02:30:34 of 2) [code = SHINGLES VACCINES (1 of 2)] Future Scheduled Test 2022-10-[address] [facility] 00:00:00 (12+) [code = Medical Center DEPRESSION SCREENING (12+)] Future Scheduled Test 2022-10-07 FALLS RISK SCREENING [facility] 00:00:00 [code = FALLS RISK Medical C enter SCREENING] Future Scheduled Test 2022-10-[address] [facility] 00:00:00 (12+) [code = Medical Center DEPRESSION SCREENING (12+)] Future Scheduled Test 2022-10-07 FALLS RISK SCREENING [facility] 00:00:00 [code = FALLS RISK Medical C enter SCREENING] Future Scheduled Test 2022-10-[address] [facility] 00:00:00 (12+) [code = Medical Center DEPRESSION SCREENING (12+)] Future Scheduled Test 2022-10-07 F[address]S [address]ISK SCREENING [facility] 00:00:00 [code = FALLS RISK Medical C enter SCREENING] Future Scheduled Test 2021-01-27 COVID-19 VACCINE (3 - [facility] 00:00:00 Booster for Pfizer Medical C enter series) [code = COVID-19 VACCINE (3 - Booster for Pfizer series)] Future Scheduled Test 2021-01-27 COVID-19 VACCINE (3 - [facility] 00:00:00 Booster for Pfizer Medical C enter series) [code = COVID-19 VACCINE (3 - Booster for Pfizer series)] Future Scheduled Test 2021-01-27 COVID-19 VACCINE (3 - [facility] 00:00:00 Booster for Pfizer Medical C enter series) [code = COVID-19 VACCINE (3 - Booster for Pfizer series)] Future Scheduled Test 2006 PNEUMOCOCCAL 65+ YRS [facility] 00:00:00 (1 - PCV) [code = Medical Ce nter PNEUMOCOCCAL 65+ YRS (1 - PCV)] Future Scheduled Test 2006 PNEUMOCOCCAL 65+ YRS [facility] 00:00:00 (1 - PCV) [code = Medical Ce nter PNEUMOCOCCAL 65+ YRS (1 - PCV)] Future Scheduled Test 2006 PNEUMOCOCCAL 65+ YRS [facility] 00:00:00 (1 - PCV) [code = Medical Ce nter PNEUMOCOCCAL 65+ YRS (1 - PCV)] Future Scheduled Test 1991 SHINGLES VACCINES ([address] [facility] 00:00:00 of 2) [code = Medical Center SHINGLES VACCINES (1 of 2)] Future Scheduled Test 1991 SHINGLES VACCINES ([address] [facility] 00:00:00 of 2) [code = Medical Center SHINGLES VACCINES (1 of 2)] Future Scheduled Test 1991 SHINGLES VACCINES ([address] [facility] 00:00:00 of 2) [code = Medical Center SHINGLES VACCINES (1 of 2)] Future Scheduled Test 1960 DTAP/TDAP/TD VACCINES [facility] 00:00:00 (1 - Tdap) [code = Medical C enter DTAP/TDAP/TD VACCINES (1 - Tdap)] Future Scheduled Test 1960 DTAP/TDAP/TD VACCINES [facility] 00:00:00 (1 - Tdap) [code = Medical C enter DTAP/TDAP/TD VACCINES (1 - Tdap)] Future Scheduled Test 1960 DTAP/TDAP/TD VACCINES [facility] 00:00:00 (1 - Tdap) [code = Medical C enter DTAP/TDAP/TD VACCINES (1 - Tdap)] Future Scheduled Test [address] [facility] 00:00:00 [facility] r Screening (12+) [code = Tobacco Cessation Counseling and Screening (12+)] Future Scheduled Test [address] [facility] 00:00:00 [facility] r Screening (12+) [code = Tobacco Cessation Counseling and Screening (12+)] Future Scheduled Test [address] [facility] 00:00:00 [facility] Medical Cente r Screening (12+) [code = Tobacco Cessation Counseling and Screening (12+)] Instructions Gi Orthoped ic Sports Medicine Encounters Start End Encounter Admission Attending Care Care Encounter Source Date/Time Date/Time Type Type Clinicians Facility Department ID 2023-03-25 2023-03-25 Outpatient JUDY VenegasCL LABO [id number] [facility] 16:45:00 16:45:00 Heriberto 24 [facility] 2023-03-25 2023-03-25 Outpatient EL Rubi JUDYTO RADI [id number] [facility] 07:18:00 07:18:00 Heriberto 88 [place] [facility] 2023-03-10 2023-03-10 Outpatient FOG_Goytia_ AOSM AOSM [id number] Gi 00:00:00 00:00:00 Mukul [id number] Ortho pe dic [facility] 2023-03-10 2023-03-10 Outpatient FOG_Goytia_ AOSM AOSM [id number] Gi 00:00:00 00:00:00 Mukul [id number] Ortho pe dic Sports Medicin e 2023-03-10 2023-03-10 Outpatient FOG_Goytia_ AOSM AOSM [id number] Gi 00:00:00 00:00:00 Mukul [id number] Ortho pe dic Sports Medicin e 2023-02-20 2023-02-20 Outpatient FOG_Goytia_ AOSM AOSM [id number] Gi 00:00:00 00:00:00 Mukul [id number] Ortho pe dic Sports Medicin e 2023-02-03 2023-02-03 Outpatient FOG_Goytia_ AOSM AOSM [id number] Gi 00:00:00 00:00:00 Mukul [id number] Ortho pe dic Sports Medicin e 2023-01-25 2023-01-25 Outpatient FOG_Goytia_ AOSM AOSM [id number] Gi 00:00:00 00:00:00 Mukul [id number] Ortho pe dic Sports Medicin e 2023-01-25 2023-01-25 Silas Ferraro AOSM [place] - Ortho 421 Gi 00:00:00 00:00:00 Lisa Ponce MD: [id number] FOG_Ofc dic [facility] Spo [facility] e [address] , Ph. [phone] 2023-01-06 2023-01-06 Outpatient FOG_Goytia_ AOSM AOSM [id number] Gi 00:00:00 00:00:00 Mukul [id number] Ortho pe dic Sports Medicin e 2023-01-06 2023-01-06 Outpatient FOG_Goytia_ AOSM AOSM [id number] Gi 00:00:00 00:00:00 Mukul [id number] Ortho pe dic Sports Medicin e 2023-01-04 2023-01-04 Heriberto Winters AOSM [place] - Ortho [id number] Gi 00:00:00 00:00:00 Lisa Venegas MD: 7401 FOG_Ofc dic [facility] e [address] , Ph. [phone] 2022-12-27 2022-12-27 Outpatient FOG_Goytia_ AOSM AOSM [id number] Gi 00:00:00 00:00:00 Mukul [id number] Ortho pe dic Sports Medicin e 2022-12-27 2022-12-27 Outpatient FOG_Goytia_ AOSM AOSM [id number] Gi 00:00:00 00:00:00 Mukul [id number] Ortho pe dic Sports Medicin e 2022-12-27 2022-12-27 Outpatient FOG_Goytia_ AOSM AOSM [id number] Gi 00:00:00 00:00:00 Mukul [id number] Ortho pe dic Sports Medicin e 2022-10-11 2022-10-11 Outpatient FOG_Goytia_ AOSM AOSM [id number] Gi 00:00:00 00:00:00 Mukul [id number] Ortho pe dic Sports Medicin e 2022-09-12 2022-09-12 Outpatient FOG_Goytia_ AOSM AOSM [id number] Gi 00:00:00 00:00:00 Mukul [id number] Ortho pe dic Sports Medicin e 2022-09-12 2022-09-12 Silas Ferraro AOSM [place] - Ortho 207 Gi 00:00:00 00:00:00 Lisa Ponce MD: 7401 FOG_Ofc dic [facility] Spo [facility] e [address] , Ph. [phone] 2022-06-10 2022-06-10 Outpatient FOG_Goytia_ AOSM AOSM [id number] Gi 00:00:00 00:00:00 Mukul [id number] Ortho pe dic Sports Medicin e 2022-05-09 2022-05-09 Outpatient FOG_Goytia_ AOSM AOSM [id number] Gi 00:00:00 00:00:00 Mukul [id number] Ortho pe dic Sports Medicin e 2022-05-09 2022-05-09 Outpatient Rosario AOSM AOSM [id number] 00:00:00 00:00:00 Silas Ferraro [id number] 2022-05-09 2022-05-09 Silas Ferraro AOSM [place] - Ortho [id number] Gi 00:00:00 00:00:00 Lisa Ponce MD: 7401 FOG_Ofc dic [facility] Spo [facility] e [address] , Ph. [phone] 2022-05-05 2022-05-05 Outpatient ANISHA Dejesus [id number] [facility] 09:20:00 09:20:00 [facility] [place] [facility] 2022-05-02 2022-05-02 Outpatient FOG_Goytia_ AOSM AOSM [id number] Gi 00:00:00 00:00:00 Mukul [id number] Ortho pe dic Sports Medicin e 2022-05-02 2022-05-02 Outpatient Rosario AGUSTIN AOSM [id number] 00:00:00 00:00:00 Silas Ferraro [id number] 2022-05-02 2022-05-02 Silas Ferraro AOSM [place] - Ortho 727 Gi 00:00:00 00:00:00 Lisa Ponce MD: 7401 FOG_Ofc dic [facility] [place] [address] , Ph. [phone] 2022-04-29 2022-04-29 Outpatient FOG_Goytia_ AOSM AOSM [id number] Gi 00:00:00 00:00:00 Mukul [id number] Ortho pe dic Sports Medicin e 2022-03-29 2022-03-29 Outpatient FOG_Goytia_ AOSM AOSM [id number] Gi 01:22:00 01:22:00 Mukul [id number] Ortho pe dic Sports Medicin e 2021-10-07 2021-10-07 Telephone OSBALDO Lew [id number] [facility] 00:00:00 00:00:00 Ogla Dangelo KADI [id number] ity of [facility] [id number] Earle as [id number] [place] [address] [address] 2021-10-06 2021-10-06 Laboratory Only, Ang Db Test [facility] 1.2.8 40.114 [id number] [facility] 11:45:00 12:00:00 Only Baron [facility] [id number] ity of [place] [id number] Earle as DARY?BLEA [phone] De dical [address] MEDICAL OFFICE BUILDING 2021-10-06 2021-10-06 Outpatient Beni [facility] [id number] [facility] 11:45:00 11:45:00 GILBERTO gallagher [facility] 2021-09-21 2021-09-22 Inpatient MERY Venegas, HCATO MED [id number] [facility] 10:12:00 13:53:00 Heriberto [facility] 2021-09-22 2021-09-22 [facility] [id number] [facility] 06:20:00 06:20:00 Heriberto [facility] 2021-08-16 2021-08-16 Outpatient MERY Venegas, JUDYTO 3DAY [id number] [facility] 09:00:00 23:00:00 Heriberto 42 [facility] 2021-08-16 2021-08-16 Outpatient Rubi, HCACL LABO [id number] [facility] 17:05:00 17:05:00 Heriberto 11 [facility] 2021-08-16 2021-08-16 Outpatient Rubi, HCAWU REFE [id number] [facility] 14:28:00 14:28:00 Heriberto 10 [facility] 2020-12-02 2020-12-02 [id number] 00:00:00 00:00:00 2020-11-03 2020-11-03 Outpatient [facility] [id number] [facility] 00:00:00 00:00:00 Results Test Description Test Time Test Comments Results Result [facility] e Comments - XR FLUORO NDL 2023-03-25 14:37:00 [facility] : 1940 Sex: M Patient Name: LOPEZ COLEMAN Unit No: [id number] EXAMS: CPT CODE: [id number] XR FLUORO NDL 18353 Fluoroscopically guided right knee aspiration FINDINGS: After informed consent was obtained a 22-gauge needle is inserted into the right knee under fluoroscopic guidance using sterile technique. 10 cc thin orange fluid was aspirated. This is sent to the lab for analysis. The patient tolerated the procedure well. 4 seconds of fluoroscopy time was used on this exam. IMPRESSION: Fluoroscopically guided right knee aspiration. at 1437 Reported and signed by: Naseem Novak M.D. CC: Heriberto Venegas MD Technologist: SLADE FERRARA ARRT Transcribed D/ (5112) [facility]: LOPEZ COLEMAN 74[address] [facility] PHYS: Heriberto Randhawa MD : 1940 AGE: 82 SEX: M [place] [address] LOC: Y.RAD PHONE #: [phone] EXAM DATE: 03/25/2023 STATUS: REG CLI FAX #: [phone] RAD #: D/C DT PAGE 1 Signed Report Patient Name: LOPEZ COLEMAN Unit No: [id number] EXAMS: CPT CODE: [id number] XR FLUORO NDL 19705 (Continued) Orig Print D/T: S: 03/25/2023 (1440) [facility] NAME: LOPEZ COLEMAN [address] [facility] PHYS: Heriberto Randhawa MD : 1940 AGE: 82 SEX: M [place] [id number] LOC: Y.RAD PHONE #: [phone] EXAM DATE: 03/25/2023 STATUS: REG CLI FAX #: [phone] RAD #: D/C DT PAGE 2 Signed Report SYNOVIAL FLD CELL CT/DIFF 2023-03-25 13:49:00 Test Item Value Reference Range Interpretation Comme nts SYNOVIAL FLD COLOR (test XANTHOCHROMIC LT. YELLOW A code = COLSY) SYNOVIAL FLD APPEARANCE SLIGHT CLOUDY CLEAR (test code = APPSY) SYNOVIAL FLD VOLUME (test 1.5 mL code = VOLSY) SYNOVIAL FLD WBC (test 25379.000 /MM3 0-200 H DON IFIED BY DILUTION 1:10 code = WBCSY) SYNOVIAL FLD RBC (test 24965.000 /mm3 0-2 H NOT E: An automated method is now code = RBCSY) being used to determinesynovial fluid WBC and R BC counts. The differential wi llstill be performed manua lly. SYNOVIAL FLD POLY (test 67 % 0-25 H code = POLYSY) SYNOVIAL FLD LYMPHOCYTE 14 % 0-78 N (test code = LYMPHSY) SYNOVIAL FLD MONOCYTE 1 % 0-71 N (test code = MONOSY) SYNOVIAL FLD LINING CELLS 18 % (test code = LINSY) SPECIMEN COMMENT: RIGHT KNEE ASPIRATION DONE BY DR NOVAK- MRI UP JNT W/O CONT RT 2022-05-07 07:32:00 [facility] 1940 Sex: M Patient Name: LOPEZ COLEMAN Unit No: [id number] EXAMS: CPT CODE: [id number] MRI UP JNT W/[place] [address] MRI OF THE RIGHT SHOULDER DIAGNOSIS: 1. Focal full-thickness tear of the supraspinatus tendon anteriorly without retraction. The tear measures 5 mm in AP diameter. There is associated tendinosis with volume loss in the muscle but no evidence for fatty infiltration. 2. Partial-thickness longitudinalsplit tear of the subscapularis tendon with partial tearing and medial subluxation of the biceps tendon. No subscapularis muscle atrophy is seen. There is an associated SLAP tear of the labrum. 3. Infraspinatus tendinosis without evidence for tear or retraction. 4. Irregularity of the anterior inferior labrum most consistent with a tear and tearing of the inferior and posterior inferior labrum. COMMENT: COMPARISON: No prior exams available. Scans were performed in the paracoronal, parasagittal and axial planes utilizing T1 , spin density with fat saturation and T2-weighting with and without fat saturation. The rotator cuff is as noted. The acromion is horizontal with AC joint degenerative change. The labrum is torn as described. Small joint and bursal effusions are present. at 0732 Reported and signed by: Madan Babin MD CC: Silas Ponce MD; Heriberto Venegas Technologist: Alex Toth Transcribed D/ (0732) tVANE [facility] NAME: LOPEZ COLEMAN [address] [facility] PHYS: Silas Marquez MD : 1940 AGE: 81 SEX: M [place] [address] LOC: Y.MRI PHONE #: [phone] EXAM DATE: 05/05/2022 STATUS: DEP CLI FAX #: [phone] RAD #: D/C DT PAGE 1 Signed Report Patient Name: LOPEZ COLEMAN Unit No: [id number] EXAMS: CPT CODE: [id number] MRI [place] JNT W/[place] [address] (Continued) Orig Print D/T: S: 05/07/2022 (0735) [facility] NAME: LOPEZ COLEMAN [address] [facility] PHYS: Silas Marquez MD : 1940 AGE: 81 SEX: M [place] [address] LOC: Y.MRI PHONE #: [phone] EXAM DATE: 05/05/2022 STATUS: POP WILLIS FAX #: [phone] RAD #: D/C DT PAGE 2 Signed ReportGLUBED 2021-09-22 11:13:00 Test Item Value Reference Range Interpretation Comments GLUBED (test code = GLUBED) 315 mg/dL 60-125 H BASIC METABOLIC [id number] 07:30:00 Test Item Value Reference Range Interpretation Comments SODIUM (test code = NA) 138 mEq/L 135-145 POTASSIUM (test code = 5.9 mEq/L 3.5-5.0 H K) CHLORIDE (test code = 105 mEq/L 100-115 CL) CARBON DIOXIDE (test 21 mEq/L 22-31 L code = CO2) GLUCOSE (test code = 320 mg/dL 65-110 H GLU) BLOOD UREA NITROGEN 36 mg/dL 7-18 H (test code = BUN) GLOMERULAR FILTRATION 41.9 >60 Unit o f measure: RATE (test code = GFR) mL/mi n/1.73 [id number] Range:Healthy A dults >90 mL/min/1.73 m2 For Chronic Kid camacho Disease: Stage II Mild Decrease i n GFR 60-90 Stage III Moderate Decrea se in GFR 30-59 Stage IV Severe Decrease in GFR 15-29 Stage V Kidney Failure <15Unit of steve ure: mL/min/1.73 [id number] Range:Healthy A dults >90 mL/min/1.73 m2 For Chronic Kid camacho Disease: Stage II Mild Decrease i n GFR 60-90 Stage III Moderate Decrea se in GFR 30-59 Stage IV Severe Decrease in GFR 15-29 Stage V Kidney Failure <15 CREATININE (test code = 1.6 mg/dL 0.7-1.3 H CREAT) CALCIUM (test code = 8.1 mg/dL 8.4-10.2 L CA) BASIC METABOLIC [id number] 07:29:00 Test Item Value Reference Range Interpretation Comments SODIUM (test code = NA) 138 mEq/L 135-145 N POTASSIUM (test code = K) 5.9 mEq/L 3.5-5.0 H CHLORIDE (test code = CL) 105 mEq/L 100-115 N CARBON DIOXIDE (test code = CO2) 21 mEq/L 22-31 L GLUCOSE (test code = GLU) 320 mg/dL 65-110 H BLOOD UREA NITROGEN (test code = 36 mg/dL 7-18 H BUN) GLOMERULAR FILTRATION RATE (test 42 ml/min >60 L code = GFR) CREATININE (test code = CREAT) 1.6 mg/dL 0.7-1.3 H CALCIUM (test code = CA) 8.1 mg/dL 8.4-10.2 L HGB [id number] 06:11:00 Test Item Value Reference Range Interpretation Comments HEMOGLOBIN (test code = HGB) 11.7 g/dL 12-16 L HEMATOCRIT (test code = HCT) 35.3 % 37-47 L SPECIMEN COMMENT: POD #[id number] 06:02:00 Test Item Value Reference Range Interpretation Comments GLUBED (test code = GLUBED) 298 mg/dL 60-125 H [id number] 23:56:00 Test Item Value Reference Range Interpretation Comments GLUBED (test code = GLUBED) 323 mg/dL 60-125 H [id number] 21:48:00 Test Item Value Reference Range Interpretation Comments GLUBED (test code = GLUBED) 249 mg/dL 60-125 H [id number] 16:15:00 Test Item Value Reference Range Interpretation Comments GLUBED (test code = GLUBED) 75 mg/dL 60-125 N [id number] 13:20:00 Test Item Value Reference Range Interpretation Comments GLUBED (test code = GLUBED) 90 mg/dL 60-125 N GLYCOSYLATED HEMOGLOBIN (HA1C)2021-08-16 17:17:00 Test Item Value Reference Range Interpretation Comments GLYCOSYLATED 8.6 % 4.8-5.9 H Any condition t hat shortens HEMOGLOBIN (HA1C) erythocyte survival or (test code = GLYHGB) decreas esmean erythrocyte age (e.g., nathanael very from acute blood los s,hemolytic anemia) will fa lsely lower HGBA1c resultsr egardless of the method used . HGBA1c results from micki goff HbSS, HbCC, and HbSc must be interpreted with cautiongiven th e pathological pr ocesses, including anemi a,increased red cell turnov er, transfusion req uirements, thatadversely i mpact HGBA1c as a marker of long-term glycemiccontrol . Alternative for ms of testing such as fructosaminesho uld be considered for these patients. GLYCOSYLATED HEMOGLOBIN (HA1C)2021-08-16 17:17:00 Test Item Value Reference Range Interpretation Comments GLYCOSYLATED 8.6 % 4.8-5.9 H Any condition t hat shortens HEMOGLOBIN (HA1C) erythocyte survival or (test code = GLYHGB) decreas esmean erythrocyte age (e.g., nathanael very from acute blood los s,hemolytic anemai) will fa lsely lower HGBA1c resultsr egardless of the method used . HGBA1c results frompat ients with HbSS, HbCC and HbSc must be interpreted wit hcaution given the patho logical processes, incl uding anemia,increase d red cell turnover, trans fusion requirements, t hatadversely impact HGBA1c a s a marker of long-term glycemiccontrol . Alternative for ms of testing such as fructosaminesho uld be considered for these patients.Any co ndition that shortens erytho cyte survival or dec reasesmean erythrocyte age (e.g., recovery from a cute blood loss,hemolytic anemia) will falsely lower H GBA1c resultsregardle ss of the method used. HG BA1c results from patientswi th HbSS, HbCC, and HbSc must be interpreted wit h cautiongiven th e pathological pr ocesses, including anemi a,increased red cell turnov er, transfusion req uirements, thatadversely i mpact HGBA1c as a marker of long-term glycemiccontrol . Alternative for ms of testing such as fructosaminesho uld be considered for these patients.DONE A T: [facility] [address], [place], [place] [address] PROTHROMBIN [id number] 12:11:00 Test Item Value Reference Range Interpretation Comments PROTHROMBIN TIME 11.8 secs 10.1-12.5 N PATIENT (test code = PTP) INTERNATIONAL NORMAL 1.04 <2.0 RECOMME NDED THERAPEUTIC RATIO (test code = RANGE FOR ORAL INR) ANTICOAGULANTTR EATMENT: CONDITION INRPr ophylaxis of venous throm bosis in 2.0 - 3.0 high- risk medical or surg ical patientsTreatme nt of venous thrombos is 2.0 - 3.0Prevention o f embolism 2.0 - 3.0Prevention o f recurrent embol ism, or 3.0 - 4.5 patie nts with mechanical pros thetic intravascular v phan IS PATIENT ON ANTICOAGULANTS ? NHas Lab been notified if Patient is on Heparin Drip? NOIf Yes, orderCBC, OCCULT BLOOD, PT every other day NTHROMBOPLASTIN TIME [id number] 12:11:00 Test Item Value Reference Range Interpretation Comments PTT ACTIVATED (test code = APTT) 31.5 secs 24.9-37.0 N IS PATIENT ON ANTICOAGULANTS ? NHas Lab been notified if Patient is on Heparin Drip? NOIf Yes, orderCBC, OCCULT BLOOD, PT every other day NCOMPREHENSIVE METABOLIC [id number] 12:02:00 Test Item Value Reference Range Interpretation Comments SODIUM (test code = 142 mmol/L 136-145 N NA) POTASSIUM (test code = 4.9 mmol/L 3.5-5.1 N K) CHLORIDE (test code = 106.0 mmol/L 98-107 N CL) CARBON DIOXIDE (test 29.7 mmol/L 21-32 N code = CO2) GLUCOSE (test code = 202 mg/dL 70-110 H GLU) BLOOD UREA NITROGEN 19 mg/dL 7-18 H (test code = BUN) GLOMERULAR FILTRATION 46.6 >60 Unit o f measure: RATE (test code = GFR) mL/mi n/1.73 [id number] Range:Healthy Adults >90 mL/min/1.73 m2 For Chronic Kidney Disease: Stage II Mild Decrease i n GFR 60-90 Stage III Moderate Decrea se in GFR 30-59 St age IV Severe Decre ase in GFR 15-29 St age V Kidney Failur e <15 CREATININE (test code 1.46 mg/dL 0.55-1.30 H = CREAT) TOTAL PROTEIN (test 6.5 g/dL 6.4-8.2 N code = PROT) ALBUMIN (test code = 3.1 g/dL 3.4-5.0 L ALB) GLOBULIN (test code = 3.4 g/dL 2.2-4.2 N GLOB) ALBUMIN/GLOBULIN RATIO 0.9 0.7-2.0 N (test code = A/G) CALCIUM (test code = 9.0 mg/dL 8.2-10.1 N CA) BILIRUBIN TOTAL (test 1.10 mg/dL 0.2-1.00 H code = BILT) SGOT/AST (test code = 44.0 U/L 15-37 H AST) SGPT/ALT (test code = 57.0 U/L 12-78 N Please note new ALT) normal range. ALKALINE PHOSPHATASE 223 U/L 46-116 H TOTAL (test code = ALKP) CBC W/AUTO [id number] 11:02:00 Test Item Value Reference Range Interpretation Comments WHITE BLOOD CELL (test code = WBC) 6.8 K/mm3 5.7-10.5 N RED BLOOD CELL (test code = RBC) 4.53 M/mm3 4.2-5.4 N HEMOGLOBIN (test code = HGB) 14.0 g/dL 12-16 N HEMATOCRIT (test code = HCT) 43.2 % 37-47 N MEAN CELL VOLUME (test code = MCV) 95 fL 80-98 N MEAN CELL HGB (test code = MCH) 30.9 pg 27-34 N MEAN CELL HGB CONCENTRATION (test 32.4 g/dL 30.8-34.1 N code = MCHC) RED CELL DISTRIBUTION WIDTH (test 12.4 % 11-16 N code = RDW) PLT (test code = PLT) 209 K/mm3 130-400 N MEAN PLATELET VOLUME (test code = 10.6 fL 8.9-12.1 N MPV) NEUTROPHIL % (test code = NT%) 56.8 % 45-70 N LYMPHOCYTE % (test code = LY%) 32.0 % 20-40 N MONOCYTE % (test code = MO%) 7.8 % 3-10 N EOSINOPHIL % (test code = EO%) 2.4 % 1-5 N BASOPHIL % (test code = BA%) 0.4 % 0.0-1.1 N NEUTROPHIL # (test code = NT#) 3.86 K/mm3 2.00-7.50 N LYMPHOCYTE # (test code = LY#) 2.17 K/mm3 1.50-4.00 N MONOCYTE # (test code = MO#) 0.53 K/mm3 0.2-0.8 N EOSINOPHIL # (test code = EO#) 0.16 K/mm3 0.04-0.4 N BASOPHIL # (test code = BA#) 0.03 K/mm3 0.02-0.10 N MANUAL DIFF REQUIRED (test code = NO MANUAL DIFF MDIFF) NUCLEATED RED BLOOD CELL (test 0 % 0-0 N code = NRBC) Notes Date/Time Note Provider Source 2021-09-22 10:36:00-00:00 [facility] ([facility]) Clinical Note REPORT#:[id number] REPORT STATUS: Signed DATE:09/22/21 TIME: 1036 PATIENT: LOPEZ COLEMAN UNIT #: [id number] [facility] AGE[facility] 80 SEX: M ATTEND: Jason Venegas MD ADM AUTHOR: Jung Mohan MD * ALL edits or amendments must be made on the [employer]/computer document * Clinical Note Note: [facility] Jung cao M.D. (cell text [phone]) Assessment/Plan 1.) Anemia of acute blood loss- .Hgb 11.7, asymp tomatic. 2.) S/p Right TKA- .acute multi-modal pain contr ol and followup. Anticoagulation as per Dr. Venegas. 3.) Hypertension CAD- .follow BP and hold Rxs if SBP<120. CV stable. 4.) Diabetes-2 Gout OsteoArthritis Hyperlipidemi a- .continue on Rx. Bump in creatinine, paitnet making g ood urine. It is expected to improve. Destiny order one dose of Veltessa for Hyperkalemia. * OK for DISCHARGE per Internal Medicine. Prior Events/Overnight: Uneventful. Chief Complaint: No significant complaints. Objective Vital Signs: Date Time Temp Pulse Resp B/P B/P Pulse O2 O2 F low FiO2 Mean Ox Delivery Rate 09/22 0729 97.5 64 18 118/66 83.5 98 Nasal cannula 09/22 0449 96.4 76 14 113/71 85.4 99 Nasal cannula 09/22 0309 96 Nasal 1 24 cannula 09/21 2356 63 13 132/63 0.0 99 Nasal cannula 09/21 2344 95.5 70 14 95/55 68.6 98 Room air 09/213 96.3 72 15 110/68 82.4 96 Nasal cannula 09/21 1920 98 Nasal 3 32 cannula 09/21 1910 96.1 65 13 117/69 85.1 96 Nasal cannula 09/21 1840 Nasal 3 cannula 09/21 1826 96.6 66 14 115/64 81.0 99 Nasal cannula 09/21 1735 Nasal 3 cannula 09/21 1721 97.6 57 14 117/63 100 Nasal 3 cannula 09/21 1706 56 14 117/62 100 Nasal 3 cannula 09/21 1655 Simple 6 mask 09/21 1651 57 13 121/65 100 Nasal 3 cannula 09/21 1636 97.8 56 14 120/60 100 Nasal 3 cannula 09/21 1621 59 14 140/65 100 Simple 6 mask 09/21 1606 58 14 123/57 100 Simple 6 mask 09/21 1551 98.6 82 16 108/70 100 Simple 6 mask 09/21 1400 70 14 128/75 100 Simple 6 mask 09/21 1355 66 16 132/71 99 Simple 6 mask 09/21 1350 62 14 138/77 99 Simple 6 mask 09/21 1205 97.0 59 16 130/75 99 Room air Gen: Alert, oriented, in mild discomfort Neck: No Masses, No Thyromegaly- CV: Regular Rate Rhythm / Edema- no significant Resp: Clear To Ascultation / Normal Respiratory Effort ABD: NonTender / NonDistended MS/Skin: No sign of compartment syndrome / +ankl e DF/PF Other: Labs/X-ray: Laboratory Tests: 09/22 09/22 09/21 09/21 09/21 0544 0458 0379 0212 1558 Chemistry Sodium (135 - 145 mEq/L) 138 Potassium (3.5 - 5.0 mEq/L) 5.9 H Chloride (100 - 115 mEq/L) 105 Carbon Dioxide (22 - 31 mEq/L) 21 L BUN (7 - 18 mg/dL) 36 H Creatinine (0.7 - 1.3 mg/dL) 1.6 H Glomerular Filtr Rate (>60) 41.9 Glucose (65 - 110 mg/dL) 320 H POC Glucose (60 - 125 mg/dL) 298 H 323 H 249 H 75 Calcium (8.4 - 10.2 mg/dL) 8.1 L Hematology Hgb (12 - 16 g/dL) 11.7 L Hct (37 - 47 %) 35.3 L 09/21 1302 Chemistry POC Glucose (60 - 125 mg/dL) 90 Microbiology: Date/Time Procedure - Status Source Growth 09/21 1230 MRSA DNA Surveillance Screen - COMP NASAL Jung Sharma M.D. at 1232 RPT #:[id number] END OF REPORT 2021-09-22 10:29:00-00:00 [facility]) Pain Management Progress Note REPORT#:[id number] REPORT STATUS: Signed DATE:09/22/21 TIME: 1029 PATIENT: LOPEZ COLEMAN UNIT #: [id number] ROOM/BED: [address] : [address] AGE: 80 SEX: M ATTEND: Jason Venegas MD ADM AUTHOR: Chaya Dinh APRN * ALL edits or amendments must be made on the [employer]/computer document * Subjective Chief Complaint: R KNEE PAIN S/P TKA Comments: Last Documented: Result Date Time Pulse Ox 98 09/22 729 B/P 118/66 09/22 729 B/P Mean 83.5 09/22 729 O2 Delivery Nasal cannula 09/22 729 Temp 36.4 09/22 07 Pulse 64 09/22 07 Resp 18 09/22 07 FiO2 24 09/22 0309 O2 Flow Rate 1 09/22 0309 History: PMH: MELIA, HTN, IDDM POD: 1 MD who placed block: DR. MOROCHO Type of block: AC S/S Activity status: PT SITTING UP IN A CHAIR WATCH ING TV. Pain: STATS HAS LITTLE PAIN Physical Exam: VAS: 2-3 LOS: 1 Resp Quality: 1 Side Effects: NONE PT APPEARS COMFORTABLE AT THIS TIME. MOTOR MVMT AND STRENGTH INTACT TO RLE. Plan: BLOCK FOLLOW UP at 1030 RPT #:[id number] END OF REPORT 2021-09-22 07:25:00-00:00 [facility] ([facility]) Clinical Note REPORT#:[id number] REPORT STATUS: Signed DATE:09/22/21 TIME: 724 PATIENT: LOPEZ COLEMAN UNIT #: [id number] [facility] AGE: 80 SEX: M ATTEND: Jason Venegas MD ADM AUTHOR: Heriberto Venegas MD * ALL edits or amendments must be made on the [employer] document * Clinical Note Note: POD# 1 right knee Joint Arthroplasty Patient well, reports pain is mild-moderate AF VSS Exam: dressing dry/intact Moves toes DF/PF Sensory unchanged A/P: Mobilize with physical Therapy DVT prophylaxis ongoing Following labs Remove coverlet, do not recover, patient may juan wer Discharge planning Electronically Signed by Heriberto Venegas MD on at 0726 RPT #:[id number] END OF REPORT 2021-09-22 07:24:00-00:00 [facility] ([facility]) Discharge Summary REPORT#:[id number] REPORT STATUS: Signed DATE:09/22/21 TIME: 723 PATIENT: LOPEZ COLEMAN UNIT #: [id number] [facility] AGE: 80 SEX: M ATTEND: Jason Venegas MD ADM AUTHOR: Heriberto Venegas MD * ALL edits or amendments must be made on the [employer] document * General Information Discharge date: 09/22/21 Hospital course: Discharge Diagnosis: Right Knee Degenerative Dis ease Procedure: Right Knee Arthroplasty Hospital Course and Findings The patient underwent the pr ocedure without incident. Findings were significant for degenerative disease of the knee. The patien t was hemodynamically and medically monitored during the postoperative per iod. Anticoagulation was instituted for postoperative DVT prophylaxis. Th e patient was progressively able to tolerate PO pain med ications and the appropriate diet. Physical therapy was instituted, with a progressive ability to am bulate and perform exercises. The patient was eventually deemed stable and saf e for discharge. Despite factors which projected a longer hospita l stay, the patient fulfilled criteria for earlier than expected disch arge, including control of pain, early mobilization with therapy, and a stable hemodyna sonia status. At discharge, the patient was comfortabl e, with a controlled pain level. There were no chest or abdominal symptoms present. Dis charge physical examination demonstrated stable vital signs and no acute dis tress. The patient had an intact wound with no signifi cant drainage, and no calf tenderness and a negative Dawood's sign bilaterally. There were no neurolog ic or vascular deficits or changes from the preoperative state. Disposition: Discharged to home Discharge Condition: Stable Instructions: Instruction sheet given to patient Activity: Ambulate with assistance, with weight- bearing as instructed in the hospital. Diet: As per preoperatively Prescriptions 1. Pain Medications: As per discharge prescription, with progressive weaning as pain decreases 2. Anticoagulation: As per discharge prescription, or PreOp anticoa gulant, as discussed with patient 3. Physical Therapy: Will undergo PT for gait training, mobilization , ibnyl-yx-[id number], and strengthening. Patient was informed that they ne ed to arrange for therapy as quickly as possible. The imp ortance of early advancement of kmzrt-kx-[id number] with home exercises, and physical therapy was stresse d to the patient. Follow-up Appointment: Patient instructe d to arrange appointment for an office visit in 2 weeks Med Rec Med Rec Discharge meds: Stop taking the following medications: ASPIRIN EC (ECOTRIN) 81 MG TAB.EC 81 MILLIGRAM ORAL DAILY. Continue taking these medications: ROSUVASTATIN (CRESTOR) 10 MG TAB 10 MILLIGRAM ORAL DAILY. COLCHICINE (COLCRYS) 0.6 MG TAB 0.6 MILLIGRAM ORAL TWICE DAILY NEEDED. as ne eded for GOUT FAMOTIDINE (PEPCID) 20 MG TAB 20 MILLIGRAM ORAL BEDTIME. cycloSPORINE (RESTASIS 0.05% OPHTH EMULSION) 1 E ACH OPHTH.EMUL 1 DROPS EACH EYE EVERY 12 HOURS. LISINOPRIL (ZESTRIL) 10 MG TAB 10 MILLIGRAM ORAL DAILY. LINAGLIPTIN (TRADJENTA) 5 MG TAB 5 MILLIGRAM ORAL DAILY. [VITAMIN D3] 25 MICROGRAM ORAL DAILY. VITAMIN B COMPLEX/VIT C (NEPHRO-ANABEL) 1 MG-60 MG -300 MCG TAB 1 TABLET ORAL DAILY. amLODIPine (NORVASC) 10 MG TAB 10 MILLIGRAM ORAL BEDTIME. [TOUJEO MAX] 60 UNITS SUBCUTANE. BEDTIME. [DEVOCETIRIZINE] 5 MILLIGRAM ORAL DAILY NEEDED. as needed for ITCHING INSULIN LISPRO (HumaLOG) 100 UNITS/ML VIAL 4 UNITS THREE TIMES A DAY. Start taking the following new medications: ASPIRIN EC (ECOTRIN) 81 MG TAB.EC 81 MILLIGRAM ORAL TWICE DAILY WITH MEALS. Qty = 60 No Refills DOXYCYCLINE HYCLATE (VIBRAMYCIN) 100 MG CAP 100 MILLIGRAM ORAL TWICE DAILY. Days = 7 Qty = 14 No Refills POLYETHYLENE GLYCOL 3350 (MIRALAX) 17 GM POWDER 17 GRAM ORAL BEDTIME. Days = 30 Qty = 30 No Refills Instructions: please take daily for constipation prevention MELOXICAM (MOBIC) 15 MG TAB 15 MILLIGRAM ORAL DAILY. Qty = 30 No Refills HYDROcodone/APAP (NORCO 10/325) 10 MG-325 MG TAB 1 TABLET ORAL EVERY SIX HOURS NEEDED as need ed for prn break through pain Qty = 28 No Refills Instructions: one tab every 6 hours only for breakthrough leydi n methocarbamoL (ROBAXIN) 500 MG TAB 500 MILLIGRAM ORAL THREE TIMES DAILY NEEDED. as needed for muscle spasm Qty = 28 No Refills traMADol (ULTRAM) 50 MG TAB 50 MILLIGRAM ORAL EVERY 4 HOURS NEEDED. as n eeded for pain Days = 7 Qty = 28 No Refills Discharge Instructions PCP )( Discharge to: Home/Self Care Discharge Instructions Additional Discharge Routines: Attending Follow- Up )( Diet: Res Diet )( Activity: As Tolerated, C rutches/Walker, Do not Submerge Incision, No Driving Follow-up Appointments Attending Physician: Attending Physician: Heriberto Venegas MD Electronically Signed by Heriberto Venegas MD on at 0725 RPT #:[id number] END OF REPORT 2021-09-21 18:13:00-00:00 [facility] ([facility]) Clinical Note REPORT#:[id number] REPORT STATUS: Signed DATE:09/21/21 TIME: 1812 PATIENT: LOPEZ COLEMAN UNIT #: [id number] ROOM/BED: [address] : [address] AGE: 80 SEX: M ATTEND: Jason Venegas MD ADM AUTHOR: Jung Mohan MD * ALL edits or amendments must be made on the el [employer]/computer document * Clinical Note Note: [facility] Jung cao MD (cell text [phone]) Internal Medicine Consult at request of : Dr. Cony Cunha Chief Complaint: right knee pain HPI: 80yo F is now s/p Right Total Knee Arthropl asty (TKA) with spinal anesthesia and peripheral ne rve block by Dr. Venegas. Ms. Coleman relates years of progressive right knee pain (recently severe) , worse with activity, and popping crunchy with restricted motion at times in quality. She has failed conservative management. Comorbidities: see below. PmHx: . Type 2 diabetes, hypertension, hyperchol esterolemia, coronary artery disease s/p stent x1, peripheral nerve block, go ut, osteoarthritis ALLERGY: Allergies: No Known Drug Allergies (Coded, 06/07/16) Home Medications: Home Medications: ROSUVASTATIN (CRESTOR) 10 MG PO DAILY COLCHICINE (COLCRYS) 0.6 MG PO BID PRN PRN GOUT LISINOPRIL (ZESTRIL) 10 MG PO DAILY LINAGLIPTIN (TRADJENTA) 5 MG PO DAILY [VITAMIN D3] 25 MCG PO DAILY VITAMIN B COMPLEX/VIT C (NEPHRO-ANABEL) 1 TAB PO D AILY amLODIPine (NORVASC) 10 MG PO BEDTIME [TOUJEO MAX] 60 UNITS SQ BEDTIME [DEVOCETIRIZINE] 5 MG PO DAILY PRN PRN ITCHING INSULIN LISPRO (HumaLOG) 4 UNITS TID FAMOTIDINE (PEPCID) 20 MG PO BEDTIME cycloSPORINE (RESTASIS 0.05% OPHTH EMULSION) 1 D ROP EACH EYE Q12H ASPIRIN EC (ECOTRIN) 81 MG PO BID MEALS DOXYCYCLINE HYCLATE (VIBRAMYCIN) 100 MG PO BID POLYETHYLENE GLYCOL 3350 (MIRALAX) 17 GM PO BEDT GREGORY MELOXICAM (MOBIC) 15 MG PO DAILY HYDROcodone/APAP (NORCO 10/325) 1 TAB PO Q6HPRN PRN prn break through pain methocarbamoL (ROBAXIN) 500 MG PO TID PRN PRN mu scle spasm traMADol (ULTRAM) 50 MG PO Q4H PRN PRN pain SgHx: . 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 Alcohol: none Drugs: none Lives: with spouse Vitals: Vital Signs Date Temp Pulse Resp B/P B/P Mean Pulse Ox FiO2 09/21 97.0-98.6 56-82 13-16 108-140/57-77 99-10 0 Gen: Alert, in mild discomfort, nl nutrition. EYE: Nl lids conjunctiva. ENT: Nl ears Nose, nl lips,. Neck: Supple, nl thyroid, No masses. CV: Regular Rate Rhythm, no heave or significant murmur. Edema- none RESP: Clear to Auscultation, normal Respiratory effort. ABD: Soft, NonDistended,. LYM: No significant cervical Lymphadenopathy. MS: No sign of compartment syndrome, Knee is wra pped, NEURO: Nonfocal, grossly normal sensation of LE, +Ankle DF/PF Preop Labs (08/16/2021): CBC:. Hgb 14, Plt 209, CHEM: Na 142, K 4.9, Cr 1 .46 (eGFR 46.6%), Hgb A1C 8.6%. EKG: SR with 1st degree AV block (medium to high risk of complications or morbid ity) (major surgery) (IV sedative, meds) Assessment Plan 1.) Anemia of Acute Blood Loss- .will recheck to jeremiah. 2.) S/p Right TKA- .acute multi-modal pain contr ol and followup. Anticoagulation as per Dr. Venegas. 3.) Hypertension CAD- .follow BP and hold Rxs if SBP<120. CV stable. 4.) Diabetes-2 Gout OsteoArthritis Hyperlipidemi a- .continue on Rx. Jung Sharma M.D. Thanks! G8427 - current medications obtained and reviewe demarcus G8730 - pain assessment with tool and followup p chandler [id number] - offered discussion o n advanced care plan and patient declined to address issue at this time. at 6496 RPT #:[id number] END OF REPORT 2021-09-21 15:06:00-00:00 [facility] ([facility]) Operative Note - Full REPORT#:[id number] REPORT STATUS: Signed DATE:09/21/21 TIME: 1506 PATIENT: LOPEZ COLEMAN UNIT #: [id number] ROOM/BED: [place] [address] : 41 AGE: 80 SEX: M ATTEND: Jason Venegas MD ADM AUTHOR: Heriberto Venegas MD * ALL edits or amendments must be made on the [employer]/computer document * Operative Report Start date: 09/21/21 Start time: 0000 Pre-procedure diagnosis: R KNEE OA Post-procedure diagnosis: SAME Procedures performed: R TKA Technique/Procedure: Total Knee Replacement (Arthroplasty) OPERATIVE PROCEDURE IN DETAIL The patient was identified in the [facility] area, and all questions and concerns were answered. The patient verbally conf irmed the site and side of the surgery and a marking of the site was done. The patient was brought to [facility] operating room and placed supine on the operating table. A sandbag was then positioned for maximal knee flexion of the operative knee and then taped in position. A pneumatic gisel rniquet was placed around the operative upper thigh. The leg was then prepped and draped in usual sterile fashion. A surgical timeout was performed to identify correct patient, surgical site and surgery. The preoperative antibiotic intravenous drip was completed. The leg was then elevated and exsanguinated with the use of an el astic bandage, and the tourniquet was then inflated. A midline incision, beginning proximal to the vargas perior pole of the patella to the tibial tubercle was then performed with a sc alpel through the skin. Meticulous hemostasis was obtained with electroc autery. Dissection was taken down through the same line to the level of the quadriceps tendon, the patellar periosteum, as well as the patellar tendon. We elevated skin flaps to ex pose the medial and lateral retinacula, and a medial arthrotomy was then performe d with electrocautery from [employer], through the medial border of the patella, and do wn to the level medial to the patellar tendon. Proximal medial periosteal e levation off the proximal tibia was then performed, and the patella was then retracted laterally and flexed( but not everted). Retractors were placed into the medial and lateral gutters of the knee with soft tissue debridement of the cr uciate ligament and the meniscal bodies, which were then sharply resected and removed. Attention was shifted to the femur. A step drill was placed anterior to the insertion of the anterior cruciate ligament, and a drill hole was then placed into this area, connecting with the intermedulla ry canal. An intermedullary alignment guide was then placed at 5 deg johanne of valgus for the knee and driven up into place. An appropriate amount of rotation was then determined, and the jig was then pinned in place into the di stal femur. The intramedullary theo was then removed. The distal cutting jig was used an d the appropriate amount of medial and lateral condyles were removed. Then t he femoral sizer was used to measure the size of the dist al femur. The femoral component rotation was set to 3 degrees of external rotati on and it was verified using a t-handle to match the mechanical axis of the tibia with the knee in fl exion. The cutting block was pinned in place and used to make the anterior, posterior, and chamfer cuts with an oscillating saw. The cutting block was remove d. A notch-cutting guide was then placed on the dis polo femoral surface. Once its medial/lateral position was verified it was pinned in place. The notch was then cut and removed using a reciprocating saw. We then directed our attention to the proximal t ibia. Retractors were placed around the proximal tibia. An external t ibial alignment cutting guide was then placed around the leg. The guide was pinned with the appropriate amount of external rotation. Then the highest point of the unaffected articular surface was then chosen with a stylus to remove an appro priate amount of bone. The cutting jig was then fixed to the anterior surfa ce of the proximal tibia with transfixion pins. The oscillating saw was used to resect approximately 10 mm of proximal bone. The jig and pins were then removed. The rest of the soft tissue of the proximal tibia and menisci were removed as well. A spacer block was placed to asses adequate liga mentous tension both in 90 degrees of flexion and full extension. Varus/valgus stress was applied and soft tissue adjustments were made as needed. Overall alignment of the leg was also verified. A tibial sizing tray was then placed onto the cu t tibial surface and its rotation was aligned with the medial 1/3 of the tibial tubercle. It provided excellent bony coverage, and there was n o overhang. A bone plug from the tibia was used to plug the hole in the femoral canal. Then the rest of the proximal tibia was prepared. A trial tibia was left in pl enedelia. The trial prosthesis was the n placed on the femur, and adequate seating with all the cuts was noted. The trial polyethyle ne was then inserted, and snapped into the tibial tray. A trial reduction was p erformed. Adequate ligamentous tension throughout the range of motion was noted. Attention was then shifted to the patella. Debri fuentes around the patellar surface was performed. The m easurement of the depth of the patella was made and the appropriate of bone was removed using an oscillating saw. Three drill holes were then placed in the bone. A trial bu tton was placed on the bone. Reduction was then performed, and adequate tracking was no barbara as well. All trial components were removed, and irrigation was performed. The periarticular tissues were injected with local num alona medication. Two packages of methyl methacrylate were mixed. The components w ere then cemented starting with the tibial tray and then the femur. All extruded bone cement was removed. A trial tibial spacer was placed in and the knee broug ht into extension. The patellar button was inserted and clamped into position. Adequate alignment wa s noted at this point. A compressive bandage was applied to the leg while the cement cured. Once the cement was hard the tourniquet was deflated. Aft er further debridement of any loose and/or extruded cement we checked for blee ding and controlled it with electrocautery. Irrigation with pulse lavage with normal saline with bacitracin was used, and the joint dried. The final posterior-stabilized tibial po ly insert was then seated. Closure was then performed . The retinac ulum and quadriceps mechanism were repaired with #2 Quill and #1 Vicryl. The subcutaneous layer was closed meticulously with deep layer of #1 Vicryl, superfic ial layer of 2-0 Vicryl, and the skin with Dermabond mesh. A sterile compressive dressing was applied . 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 Their responsibilities inc lude patient positioning, retraction of soft tissues for wide exposure so that the surgeon can use both hands to perform the surgery, as well as stabili zing the limb for surgical instrumentation throughout the case. Ret raction for exposure/visualization, as well as stabilization of the extremity is vital to the procedure and not possible without an animal care assistant. In addition constantino begum an animal care assistant shortens operative times which decrea ses expenses and improves outcomes. I am not part of any residency or fellowship training programs and therefore require the help of the animal care assistant listed above for this surgery. IMPLANTS Depuy Sigma 5 Fem, 4Tib, 10mm ALTRX, 38mm Oval p atella Primary Surgeon: RUBI [employer] Teacher(s): MELANI PAC Anesthesia: regional anesthesia, spinal anesthet ic Operative findings: OA Complications: none Estimated blood loss in ml's: 50 Specimens removed/altered: none Implant(s): DEPUY Electronically Signed by Heriberto Venegas MD on at 1508 RPT #:[id number] END OF REPORT 2021-08-16 11:04:00-00:00 [id number] [place] [address] PATIENT NAME: LOPEZ COLEMAN ADMIT DATE: ACCOUNT NO: [id number] ROOM NO: AGE: 80 REPORT TYPE: ELECTROCARDIOGRAM SEX: M ADMITTING PHYSICIAN:Heriberto Venegas MD ATTENDING PHYSICIAN:Heriberto Venegas MD Order: [id number] Test Reason : PRE OP CLEARANCE HTN Test Date/Time Stamp: SatAug 16 2021 11:04:01 Blood Pressure : / mmHG Vent. Rate : 061 BPM Atrial Rate : 061 BPM P-R Int : 230 ms QRS Dur : 084 ms QT Int : 414 ms P-R-T Axes : -23 -10 034 degree s QTc Int : 416 ms Sinus rhythm with 1st degree AV block Otherwise normal ECG When compared with ECG of 30-MAY-2016 12:04, No significant change was found Confirmed by THIERNO SEPULVEDA MD ([id number]) on 08/22/2021 12:35:03 PM Referred By: Heriberto Venegas Confirmed by:THIERNO SEPULVEDA MD Electronically Signed by Thierno Sepulveda MD on 08/07 03/27 at 1235 PATIENT NAME: LOPEZ COLEMAN [id number]
[2023-03-29 13:38] LABS: Absolute Lymphocytes (CBC) 1.7 K/uL (0.7-4.9); Hematocrit 48.5 % (39.6-49.0); Lymphocytes % 16.9 % (15.3-44.8); MCV 95.6 fL (80-100); MPV 7.5 fL (7.6-11.3); RBC Red Blood Cell Count 5.08 M/uL (4.33-5.43)
--- NOTE | 2023-03-29 13:42 | RAD REPORT ---
EXAM DESCRIPTION: RAD - Knee Right 3 View - 03/29/2023 1:35 pm CLINICAL HISTORY: PAIN COMPARISON: No comparisons FINDINGS: Right total knee arthroplasty is present. No evidence of hardware loosening or infection. No fracture. Small suprapatellar joint effusion.
--- NOTE | 2023-03-29 13:42 | RAD REPORT ---
EXAM DESCRIPTION: RAD - Chest Single View - 03/29/2023 1:35 pm CLINICAL HISTORY: syncope, hyperglycemia Chest pain. COMPARISON: Chest Pa And Lat (2 Views) dated 04/12/2021; Chest Pa And Lat (2 Views) dated 06/09/2020; Ch est Pa And Lat (2 Views) dated 11/03/2018; Chest Pa And Lat (2 Views) dated 02/13/2018; Knee Right 3 Vi ew dated 03/29/2023 FINDINGS: Portable technique limits examination quality. The lungs are grossly clear. The heart is normal in size. No displaced fractures. IMPRESSION: No acute intrathoracic process suspected.
[2023-03-29 13:48] LABS: Protime INR 0.99
[2023-03-29 13:55] LABS: Albumin 3.6 g/dL (3.4-5.0); Bilirubin Total 0.6 mg/dL (0.2-1.0); C-Reactive Protein 4.63 mg/L (<3.00); Potassium 4.9 mEq/L (3.5-5.1); Protein, Total 7.2 g/dL (6.4-8.2)
[2023-03-29] MEDS ORDERED: NA CHLORIDE 0.9% 1,000 ML ONE (13:55)
[2023-03-29] MEDS ORDERED: NA CHLORIDE 0.9% 500 ML ONE (15:41)
--- NOTE | 2023-03-29 16:05 | EDPHYS ---
Physician Documentation [facility] Name: Tito Coleman Age: 82 yrs Sex: Male : 1940 Arrival Date: 03/29/2023 Time: 12:20 Bed 6 Private MD: ED Physician Tayo Peter HPI: 03/29 15:22 This 82 yrs old Male presents to ER via Wheelchair with complaints of High Blood Sugar. rn 15:22 The patient or guardian reports. rn 15:22 The patient has experienced syncope. Onset: The symptoms/episode began/occurred just rn prior to arrival. Duration: This was a single episode. Associated injury: The patient did not suffer any apparent associated injury. Current symptoms: Currently, the patient is not experiencing any symptoms. The patient has not experienced similar symptoms in the past. The patient has been recently seen by a physician:. Family and EMS report syncopal episode, felt lightheaded, glucose has been high for unknown period of time, compliant with diabetes meds. Told recently that has a fungal infection in right knee, has had arthroplasty of that knee by physician at [facility]. I spoke with his PA Emmy who confirmed this, and has planned surgery on Saturday. Cultures showed fungal infection. . Historical: - Allergies: 12:34 No Known Allergies; cm10 - PMHx: 12:34 Diabetes - IDDM; Hypertensive disorder; cm10 - Immunization history:: Adult Immunizations unknown. - Social history:: Smoking status: Patient denies any tobacco usage or history of. - Family history:: not pertinent. - Hospitalizations: : No recent hospitalization is reported. ROS: 16:01 Constitutional: Negative for fever, chills, and weight loss, Eyes: Negative for injury, rn pain, redness, and discharge, Neck: Negative for injury, pain, and swelling, Cardiovascular: Negative for chest pain, palpitations, and edema, Respiratory: Negative for shortness of breath, cough, wheezing, and pleuritic chest pain, Abdomen/GI: Negative for abdominal pain, nausea, vomiting, diarrhea, and constipation, MS/Extremity: Negative for injury and deformity, Skin: Negative for injury, rash, and discoloration, Neuro: Negative for headache, weakness, numbness, tingling, and seizure. Exam: 16:01 Constitutional: This is a well developed, well nourished patient who is awake, alert, rn and in no acute distress. Head/Face: Normocephalic, atraumatic. ENT: dry MM Cardiovascular: Regular rate and rhythm. No pulse deficits. Respiratory: No increased work of breathing, no retractions or nasal flaring. Abdomen/GI: Soft, non-tender Skin: Warm, dry MS/ Extremity: Pulses equal, no cyanosis. Neurovascular intact. Full, normal range of motion right knee. Equal circumference. Neuro: Awake and alert, GCS 15 Vital Signs: 12:32 BP 100 / 73; Pulse 68; Resp 16; Temp 97.3; Pulse Ox 98% on R/A; Weight 88.9 kg; Height cm10 5 ft. 10 in. ; Pain 0/10; 14:43 BP 112 / 67; Pulse 61; Resp 16; Pulse Ox 98% ; ko1 16:21 BP 118 / 70; Pulse 64; Resp 16; Pulse Ox 99% ; ko1 12:32 Body Mass Index 28.12 (88.90 kg, 177.8 cm) cm10 12:32 Pain Scale: Adult cm10 [place] Coma Score: 15:30 Eye Response: spontaneous(4). Motor Response: obeys commands(6). Verbal Response: ko1 oriented(5). Total: 15. MDM: 12:53 Patient medically screened. rn 16:01 Differential Diagnosis: idiopathic syncope, vasovagal episode, sepsis, knee effusion, rn hyperglycemia, dehydration. Data reviewed: vital signs, nurses notes, lab test result(s), radiologic studies, plain films, and as a result, I will discharge patient. Consideration of Admission/Observation Escalation of care including admission/observation considered. Management of patient was discussed with the following: Cytology Supervisor: JOHN Booth, discussed case with her, ok to f/u as planned for surgery Saturday at [facility]. . Counseling: I had a detailed discussion with the patient and/or guardian regarding: the historical points, exam findings, and any diagnostic results supporting the discharge/admit diagnosis, lab results, radiology results, the need for outpatient follow up, to return to the emergency department if symptoms worsen or persist or if there are any questions or concerns that arise at home. Special discussion: I discussed with the patient/guardian in detail that at this point there is no indication for admission to the hospital. It is understood, however, that if the symptoms persist or worsen the patient needs to return immediately for re-evaluation. 03/29 12:43 Order name: Glucose, Ancillary Testing; Complete Time: 13:27 EDMS 03/29 13:00 Order name: Blood Culture Adult (2) rn 03/29 13:00 Order name: CBC with Diff; Complete Time: 13:59 rn 03/29 13:00 Order name: CMP; Complete Time: 13:59 rn 03/29 13:00 Order name: Lactate w/ 2H reflex if indic.; Complete Time: 13:59 rn 03/29 13:00 Order name: Protime (+inr); Complete Time: 13:59 rn 03/29 13:00 Order name: Ptt, Activated; Complete Time: 13:59 rn 03/29 13:00 Order name: Urinalysis w/ reflexes rn 03/29 13:00 Order name: CRP; Complete Time: 13:59 rn 03/29 13:00 Order name: Chest Single View XRAY; Complete Time: 13:59 rn 03/29 13:00 Order name: XRAY Knee RIGHT 3 view; Complete Time: 13:59 rn 03/29 13:00 Order name: EKG; Complete Time: 13:01 rn 03/29 13:00 Order name: Accucheck; Complete Time: 13:01 rn 03/29 13:00 Order name: Cardiac monitoring; Complete Time: 13: rn 03/29 13:00 Order name: EKG - Nurse/Tech; Complete Time: 13:01 rn 03/29 13:00 Order name: IV Saline Lock - Large Bore; Complete Time: 13:29 rn 03/29 13:00 Order name: Labs collected and sent; Complete Time: 13:29 rn 03/29 13:00 Order name: O2 Per Protocol; Complete Time: 13: rn 03/29 13:00 Order name: O2 Sat Monitoring; Complete Time: 13: rn 03/29 13:00 Order name: Vital Signs; Complete Time: 13:01 rn Administered Medications: 13:49 Drug: NS 0.9% IV 1000 ml Route: IV; Rate: 1000 ml; Site: right antecubital; ko1 15:00 Follow up: IV Status: Completed infusion; IV Intake: 1000ml ko1 15:15 Drug: NS 0.9% IV 500 ml Route: IV; Rate: bolus; Site: right antecubital; ko1 16:20 Follow up: IV Status: Completed infusion; IV Intake: 500ml ko1 Disposition Summary: 03/29/23 16:04 Discharge Ordered Location: Home rn Problem: new rn Symptoms: have improved rn Condition: Stable rn Diagnosis - Dehydration rn - Syncope rn - Hyperglycemia, unspecified rn Followup: rn - With: Private Physician - When: As needed - Reason: Recheck today's complaints, Re-evaluation by your physician Discharge Instructions: - Discharge Summary Sheet rn - Hyperglycemia rn - Syncope rn - Blood Glucose Monitoring, Adult rn Forms: - Medication Reconciliation Form rn - Thank You Letter rn - Antibiotic rn eligibility - Prescription Opioid Use rn Signatures: Dispatcher [employer] Tayo Workman MD MD rn Oliver, Kathy RN RN ko1 Zari Lira, RN RN cm10
--- NOTE | 2023-03-29 16:05 | ER ---
Nurse's Notes [facility] Name: Tito Coleman Age: 82 yrs Sex: Male : 1940 Arrival Date: 03/29/2023 Time: 12:20 Bed 6 Private MD: Diagnosis: Dehydration;Syncope;Hyperglycemia, unspecified Presentation: 03/29 12:32 Chief complaint: Spouse and/or significant other states: Pt had a witnessed syncopal cm10 episode. Pt's states that patient was walking and he had a "seizure." Pt had a blood sugar checked and it was in the 400s. Pt currently A\\T\\Ox4. Coronavirus screen: Vaccine status: Patient reports receiving the 2nd dose of the covid vaccine. Client denies travel out of the [place] in the last 14 days. At this time, the client does not indicate any symptoms associated with coronavirus-19. Ebola Screen: Patient denies travel to an Ebola-affected area in the 21 days before illness onset. No symptoms or risks identified at this time. Initial Sepsis Screen: Does the patient meet any 2 criteria? No. Patient's initial sepsis screen is negative. Does the patient have a suspected source of infection? No. Patient's initial sepsis screen is negative. Risk Assessment: Do you want to hurt yourself or someone else? Patient reports no desire to harm self or others. Onset of symptoms was March 29, 2023. 12:32 Method Of Arrival: Wheelchair cm10 12:32 Acuity: LISSETT 3 cm10 Triage Assessment: 15:30 General: Appears in no apparent distress. comfortable, Behavior is calm, cooperative, ko1 appropriate for age. Historical: - Allergies: 12:34 No Known Allergies; cm10 - PMHx: 12:34 Diabetes - IDDM; Hypertensive disorder; cm10 - Immunization history:: Adult Immunizations unknown. - Social history:: Smoking status: Patient denies any tobacco usage or history of. - Family history:: not pertinent. - Hospitalizations: : No recent hospitalization is reported. Screenin:[address] [facility] ED Fall Risk Assessment (Adult) History of falling in the last 3 months, jl7 including since admission No falls in past 3 months (0 pts) Confusion or Disorientation No (0 pts) Intoxicated or Sedated No (0 pts) Impaired Gait No (0 pts) Mobility Assist Device Used No (0 pt) Altered Elimination No (0 pt) Score/Fall Risk Level 0 - 2 = Low Risk Oriented to surroundings, Maintained a safe environment. Abuse screen: Denies threats or abuse. Denies injuries from another. Nutritional screening: No deficits noted. Tuberculosis screening: No symptoms or risk factors identified. Assessment: 12:50 Reassessment: Dr. Peter at bedside assessing pt. jl7 16:21 Pain: Denies pain. Neuro: No deficits noted. ko1 Vital Signs: 12:32 BP 100 / 73; Pulse 68; Resp 16; Temp 97.3; Pulse Ox 98% on R/A; Weight 88.9 kg; Height cm10 5 ft. 10 in. ; Pain 0/10; 14:43 BP 112 / 67; Pulse 61; Resp 16; Pulse Ox 98% ; ko1 16:21 BP 118 / 70; Pulse 64; Resp 16; Pulse Ox 99% ; ko1 12:32 Body Mass Index 28.12 (88.90 kg, 177.8 cm) cm10 12:32 Pain Scale: Adult cm10 [place] Coma Score: 15:30 Eye Response: spontaneous(4). Motor Response: obeys commands(6). Verbal Response: ko1 oriented(5). Total: 15. ED Course: 12:21 Patient arrived in ED. am2 12:34 Triage completed. cm10 12:35 Arm band placed on. cm10 12:40 Patric Banks, RN is Primary Nurse. jl7 12:50 Patient has correct armband on for positive identification. jl7 12:53 Tayo Peter MD is Attending Physician. rn 12:54 Patient has correct armband on for positive identification. Placed in gown. Bed in low mm9 position. Call light in reach. Side rails up X 1. Seizure precautions initiated. Warm blanket given. Client placed on continuous cardiac and pulse oximetry monitoring. NIBP monitoring applied. property assessment monitor on. Pulse ox on. NIBP on. 12:54 EKG done, by ED staff, reviewed by Tayo Peter MD. mm9 13:01 Lactate w/ 2H reflex if indic. Sent. mm9 13:29 Initial lab(s) drawn, by [facility], sent to lab. Inserted saline lock: 20 gauge in right mm9 antecubital area, using aseptic technique. 13:30 Ptt, Activated Sent. mm9 13:30 Protime (+inr) Sent. mm9 13:30 Lactate w/ 2H reflex if indic. Sent. mm9 13:30 CMP Sent. mm9 13:30 CBC with Diff Sent. mm9 13:30 CRP Sent. mm9 13:37 Chest Single View XRAY In Process Unspecified. EDMS 13:37 XRAY Knee RIGHT 3 view In Process Unspecified. EDMS 16:20 Urinalysis w/ reflexes Sent. ko1 16:21 No provider procedures requiring assistance completed. IV discontinued, intact, ko1 bleeding controlled, No redness/swelling at site. Pressure dressing applied. Administered Medications: 13:49 Drug: NS 0.9% IV 1000 ml Route: IV; Rate: 1000 ml; Site: right antecubital; ko1 15:00 Follow up: IV Status: Completed infusion; IV Intake: 1000ml ko1 15:15 Drug: NS 0.9% IV 500 ml Route: IV; Rate: bolus; Site: right antecubital; ko1 16:20 Follow up: IV Status: Completed infusion; IV Intake: 500ml ko1 Medication: 12:50 VIS not applicable for this client. jl7 Intake: 15:00 IV: 1000ml; Total: 1000ml. ko1 16:20 IV: 500ml; Total: 1500ml. ko1 Outcome: 16:04 Discharge ordered by . rn 16:21 Discharged to home ambulatory, with family. ko1 16:21 Condition: improved 16:21 Discharge instructions given to patient, family, Instructed on discharge instructions, follow up and referral plans. Demonstrated understanding of instructions, follow-up care. 16:35 Patient left the ED. ko1 Signatures: Dispatcher [employer] EDMS Tayo Peter MD MD rn Leal, Jahala RN RN [email or web address] Kathryn Sanchez Kathy RN RN [email or web address] Herminia Lira mm9 Zari Lira, RN RN cm10 Corrections: (The following items were deleted from the chart) 13:04 12:50 Patient has correct armband on for positive identification. Seizure precautions jl7 initiated. jl7 14:44 12:54 Patient has correct armband on for positive identification. Placed in gown. Bed ko1 in low position. Call light in reach. Side rails up X 1. Child being held by parent. mm9
[2023-03-29 16:40] LABS: Specific Gravity 1.026 (1.005-1.030); Urine Bilirubin NEGATIVE (Negative); Urine Blood Negative (Negative); Urine Clarity Clear (Clear); Urine Color Yellow (Yellow); Urine Glucose 4+ (Over) (Negative); Urine Protein NEGATIVE (Negative); Urine Urobilinogen Normal (Normal)
[2023-03-29 16:45] VITALS: TEMP 97.3
[2023-03-29 16:48] VITALS: BP 118/70; O2SAT 99
--- NOTE | 2023-04-01 17:18 | EKG ---
Test Date: 2023-03-29 Test Time: 12:48:34 Color Maker Dyer: JAI MEASUREMENT RESULTS: Intervals: Rate: 65 MA: 234 QRSD: 84 QT: 402 QTc: 418 Lanse: P: 44 MA: 234 QRS: 13 T: 58 INTERPRETIVE STATEMENTS: Sinus rhythm with 1st degree AV block Cannot rule out Anterior infarct, age undetermined Abnormal ECG Compared to ECG 02/12/2011 13:21:01 Myocardial infarct finding now present Sinus bradycardia no longer present Electronically Signed On 04-01-23 17:12:26 CDT by Eleno Mcwilliams
== END 2023-03-29 16:35 | disposition home or self-care (01) ==
LOC: ER 12:20
DX: E86.0 Dehydration (principal); E11.65 Type 2 diabetes mellitus with hyperglycemia; I10 Essential (primary) hypertension
CPT/HCPCS: 96361; 87040 ×2; 85025; 36415; 85610; 82947; 83605; 85730; 81003; 80053; 86140; 71045; 73562; 96360; 99285; J7040; J7030; 93005

== ENCOUNTER 2024-05-18 11:11 | Inpatient (IN) | payer OTHER ==
[2024-05-18] MEDS ORDERED: NA CHLORIDE 0.9% 1,000 ML ONE (11:31)
[2024-05-18 11:41] LABS: Absolute Eosinophils 0.1 K/uL (0-0.5); Absolute Lymphocytes (CBC) 3.1 K/uL (0.7-4.9); Absolute Monocytes 0.6 K/uL (0.1-1.3); Basophils % 0.2 % (0-1.3); Eosinophils % 0.8 % (0-4.4); Hematocrit 53.6 % (39.6-49.0); Hemoglobin 17.7 g/dL (13.6-17.9); Lymphocytes % 24.4 % (15.3-44.8); MCH 31.9 pg (27.0-35.0); MCHC 33.1 g/dL (32.0-36.0); MCV 96.3 fL (80-100); Neutrophils % 69.6 % (41.7-73.7); Platelets 254 thou/uL (152-406); RBC Red Blood Cell Count 5.56 M/uL (4.33-5.43); Red Cell Distribution Width 13.5 % (12.1-15.2)
[2024-05-18 12:00] LABS: Albumin 3.4 g/dL (3.4-5.0); Albumin/Globulin Ratio 0.9 (1.1-1.8); Anion Gap 10.1 mEq/L (5.0-15.0); Bilirubin Direct 0.2 mg/dL (0-0.2); Bilirubin Indirect, Calculated 0.3 mg/dL (0.2-0.8); Bilirubin Total 0.5 mg/dL (0.2-1.0); Globulin 3.8 g/dL (2.3-3.5); Magnesium 2.1 mg/dL (1.6-2.4); Potassium 5.1 mEq/L (3.5-5.1); Protein, Total 7.2 g/dL (6.4-8.2); Troponin High Sensitivity 16.8 pg/mL (<58.9)
--- NOTE | 2024-05-18 12:14 | RAD REPORT ---
EXAM DESCRIPTION: RAD - Chest Single View - 05/18/2024 11:56 am CLINICAL HISTORY: weakness COMPARISON: Chest Pa And Lat (2 Views) dated 09/13/2023; Chest Single View dated 03/29/2023; Chest Pa And Lat (2 Views) dated 04/12/2021; Chest Pa And Lat (2 Views) dated 06/09/2020 FINDINGS: Lines: None. Lungs: No evidence of edema or pneumonia. Pleural: No significant pleural effusions or pneumothorax. Cardiac: The heart size is within normal limits. Mediastinum: Within normal limits. Bones: No acute fractures. Other: Colon interposed to the liver in the right upper quadrant. IMPRESSION: No acute cardiopulmonary disease.
[2024-05-18 12:45] LABS: Blood Morphology Comment NOT SEEN (NOT SEEN); Differential Total Cells Count 100; Eosinophils 3 % (0-3); Lymphocytes 10 % (15-42); Monocytes 25 % (0-10); Platelet Estimate ADEQ; Segmented Neutrophils 62 % (40-80)
[2024-05-18 13:07] LABS: Specific Gravity 1.029 (1.005-1.030); Sqamous Epithelial <5 /HPF (None Seen); Urine Bacteria None Seen /HPF (<20); Urine Bilirubin NEGATIVE (Negative); Urine Blood Negative (Negative); Urine Clarity Clear (Clear); Urine Color Yellow (Yellow); Urine Culture Reflex Order NOT NEEDED; Urine Glucose 4+ (Over) (Negative); Urine Ketones NEGATIVE (Negative); Urine Micro Reflex YN NO BILL MICROSCOPIC; Urine Mucus Slight /HPF (None Seen); Urine Nitrite NEGATIVE (Negative); Urine Protein NEGATIVE (Negative); Urine RBC <5 /HPF (None Seen); Urine Urobilinogen Normal (Normal); Urine WBC <5 /HPF (<5)
--- NOTE | 2024-05-18 13:19 | EDPHYS ---
Physician Documentation [facility] Name: Tito Coleman Age: 83 yrs Sex: Male : 1940 Arrival Date: 05/18/2024 Time: 11:11 Bed 8 Private MD: ED Physician Saji Tony HPI: 05/18 11:31 This 83 yrs old Male presents to ER via Unassigned with complaints of General Weakness, rt sent by . 11:31 Patient was sent to the ED by his primary care for a generalized weakness. Patient rt states that this has been present for about a month, has been progressively worsening. Patient states that it now makes it difficult for him to walk due to the weakness. Denies fall, injury, lightheadedness, shortness of breath, chest pain. Denies other acute complaints at this time, symptoms are moderate in severity, no other aggravating or elevating factors. Historical: - Allergies: 11:30 No Known Allergies; aa5 - PMHx: 11:30 Diabetes - IDDM; Hypertensive disorder; aa5 - Immunization history:: Adult Immunizations up to date. - Infectious Disease History:: Denies. - Social history:: Smoking status: Patient denies any tobacco usage or history of. ROS: 11:31 Constitutional: Negative for fever, chills, and weight loss, Cardiovascular: Negative rt for chest pain, palpitations, and edema, Respiratory: Negative for shortness of breath, cough, wheezing, and pleuritic chest pain, Abdomen/GI: Negative for abdominal pain, nausea, vomiting, diarrhea, and constipation, MS/Extremity: Negative for injury and deformity, Skin: Negative for injury, rash, and discoloration, Neuro: negative for headache Psych: Negative for depression, anxiety, suicide ideation, homicidal ideation, and hallucinations, 11:31 Neuro: Positive for weakness, Negative for altered mental status, dizziness, 11:32 Neuro: rt Exam: 11:32 Constitutional: This is a well developed, well nourished patient who is awake, alert, rt and in no acute distress. Head/Face: Normocephalic, atraumatic. Chest/axilla: Normal chest wall appearance and motion. Nontender with no deformity. No lesions are appreciated. Cardiovascular: Regular rate and rhythm with a normal S1 and S2. No gallops, murmurs, or rubs. Normal PMI, no JVD. No pulse deficits. Respiratory: Lungs have equal breath sounds bilaterally, clear to auscultation and percussion. No rales, rhonchi or wheezes noted. No increased work of breathing, no retractions or nasal flaring. Abdomen/GI: Soft, non-tender, with normal bowel sounds. No distension or tympany. No guarding or rebound. No evidence of tenderness throughout. Skin: Warm, dry with normal turgor. Normal color with no rashes, no lesions, and no evidence of cellulitis. MS/ Extremity: Pulses equal, no cyanosis. Neurovascular intact. Full, normal range of motion. Neuro: Awake and alert, GCS 15, oriented to person, place, time, and situation. Cranial nerves II-XII grossly intact. Motor strength 5/5 in all extremities. Sensory grossly intact. Cerebellar exam normal. Normal gait. Psych: Awake, alert, with orientation to person, place and time. Behavior, mood, and affect are within normal limits. 11:50 ECG was reviewed by the Attending Physician. rt Vital Signs: 11:17 BP 103 / 86; Pulse 92; Resp 18 S; Temp 97.6(TE); Pulse Ox 96% on R/A; aa5 12:58 BP 111 / 67; Pulse 80; Resp 16; Pulse Ox 100% on R/A; ap3 14:34 BP 115 / 74; Pulse 77; Resp 17; Pulse Ox 98% on R/A; rs5 MDM: 11:20 Patient medically screened. rt 13:52 Differential Diagnosis Dehydration, ADEOLA, CAD. Data reviewed: vital signs, nurses notes, rt lab test result(s), EKG, radiologic studies. Consideration of Admission/Observation Patient was admitted/placed on observation. Management of patient was discussed with the following: Primary Care Provider: Agrees to admit. I considered the following discharge prescriptions or medication management in the emergency department Medications were administered in the Emergency Department. See MAR. Independent interpretation of the following test(s) in the Emergency Department X-Ray: My interpretation is No edema seen on interpretation of x-ray images. Care significantly affected by the following chronic conditions: Diabetes, Hypertension. Counseling: I had a detailed discussion with the patient and/or guardian regarding the historical points, exam findings, and any diagnostic results supporting the discharge/admit diagnosis, lab results, radiology results, the need for further work-up and treatment in the hospital. Response to treatment: the patient's symptoms have mildly improved after treatment. 05/18 11:26 Order name: Basic Metabolic Panel; Complete Time: 12:18 rt 08 11:26 Order name: CBC with Diff; Complete Time: 12:59 rt 05/18 11:26 Order name: LFT's; Complete Time: 12:18 rt 05/18 11:26 Order name: Magnesium; Complete Time: 12:18 rt 05/18 11:26 Order name: NT PRO-BNP; Complete Time: 12:18 rt 05/18 11:26 Order name: Troponin HS; Complete Time: 12:18 rt 05/18 11:26 Order name: CPK; Complete Time: 12:18 rt 05/18 11:44 Order name: Manual Differential; Complete Time: 12:59 EDMS 05/18 12:18 Order name: UAM; Complete Time: 13:14 rt 05/18 11:26 Order name: XRAY Chest (1 view); Complete Time: 12:18 rt 05/18 11:26 Order name: Cardiac monitoring; Complete Time: 11:43 rt 12 11:26 Order name: EKG - Nurse/Tech; Complete Time: 11:43 rt 12 11:26 Order name: IV Saline Lock; Complete Time: 11:36 rt 12 11:26 Order name: Labs collected and sent; Complete Time: 11:36 rt 12 11:26 Order name: O2 Per Protocol; Complete Time: 11:36 rt 05/18 11:26 Order name: O2 Sat Monitoring; Complete Time: 11:36 rt EC:50 Rate is 78 beats/min. Rhythm is regular, 1st Degree Block with No ectopy. QRS [place] is rt Normal. [place] interval is prolonged at 232 msec. QRS interval is normal. QT interval is normal. No Q waves. T waves are Normal. No ST changes noted. Interpreted by me. Administered Medications: 11:43 Drug: NS 0.9% IV 1000 ml IV at 1 bolus Per protocol; 1000 mL bolus Route: IV; Rate: 1 rs5 bolus; Site: right antecubital; 13:01 Follow up: IV Status: Completed infusion; IV Intake: 1000ml rs5 14:02 Drug: Fluconazole PO 200 mg PO once Route: PO; rs5 14:30 Follow up: Response: No adverse reaction rs5 Disposition Summary: 05/18/24 13:19 Hospitalization Ordered Notes: Hospitalization Status: Inpatient Admission rt Provider: Don Fatima rt Location: Telemetry/MedSurg (Inpatient) rt Condition: Fair rt Problem: new rt Symptoms: are unchanged rt Bed/Room Type: Standard rt Room Assignment: 225(05/18/24 14:31) aa5 Diagnosis - Dehydration rt - Acute kidney injury rt Forms: - Medication Reconciliation Form rt - SBAR form rt - Leadership Thank You Letter rt Signatures: Dispatcher [employer] EDMS Galilea Adame RN RN aa5 Daiana West eb Saji Tony MD MD rt Ray Estrella RN RN rs5 Corrections: (The following items were deleted from the chart) 11:26 11:26 BASIC METABOLIC PANEL+C.LAB.BRZ ordered. [facility] EDKS 11:26 11:26 CBC+H.LAB.BRZ ordered. [facility] 11:26 11:26 HEPATIC FUNCTION+C.LAB.BRZ ordered. [facility] 11:27 11:26 MAGNESIUM+C.LAB.BRZ ordered. [facility] EDKS 11:27 11:26 PROBNP+C.LAB.BRZ ordered. [facility] 11:27 11:26 Troponin High Sensitivity+C.LAB.BRZ ordered. [facility] 11:27 11:26 CREATINE PHOSPHOKINASE+C.LAB.BRZ ordered. [facility] 11:27 11:27 Chest Single View+RAD.RAD.BRZ ordered. [facility] 11:32 11:31 Constitutional: Negative for fever, chills, and weight loss, Cardiovascular: rt Negative for chest pain, palpitations, and edema, Respiratory: Negative for shortness of breath, cough, wheezing, and pleuritic chest pain, Abdomen/GI: Negative for abdominal pain, nausea, vomiting, diarrhea, and constipation, MS/Extremity: Negative for injury and deformity, Skin: Negative for injury, rash, and discoloration, Neuro: Negative for headache, weakness, numbness, tingling, and seizure, Psych: Negative for depression, anxiety, suicide ideation, homicidal ideation, and hallucinations, rt 13:50 13:19 rt eb 14:31 13:50 217 eb aa5
--- NOTE | 2024-05-18 13:19 | ER ---
Nurse's Notes [facility] Name: Tito Coleman Age: 83 yrs Sex: Male : 1940 Arrival Date: 05/18/2024 Time: 11:11 Bed 8 Private MD: Diagnosis: Dehydration;Acute kidney injury Presentation: 05/18 11:17 Chief complaint: Patient states: generalized weakness x 1 month that is getting worse, aa5 reports was sent by Dr. Fatima, pt states "Dr. Fatima checked my blood pressure and standing up it was 88 (systolic)". 11:17 Coronavirus screen: At this time, the client does not indicate any symptoms associated aa5 with coronavirus-19. Ebola Screen: Patient denies travel to an Ebola-affected area in the 21 days before illness onset. Initial Sepsis Screen: Does the patient meet any 2 criteria? No. Patient's initial sepsis screen is negative. Does the patient have a suspected source of infection? No. Patient's initial sepsis screen is negative. Risk Assessment: Do you want to hurt yourself or someone else? Patient reports no desire to harm self or others. Onset of symptoms was May 2024. 11:17 Acuity: LISSETT 3 aa5 11:17 Method Of Arrival: Wheelchair aa5 Historical: - Allergies: 11:30 No Known Allergies; aa5 - PMHx: 11:30 Diabetes - IDDM; Hypertensive disorder; aa5 - Immunization history:: Adult Immunizations up to date. - Infectious Disease History:: Denies. - Social history:: Smoking status: Patient denies any tobacco usage or history of. Screenin:36 Abuse screen: Denies threats or abuse. Nutritional screening: No deficits noted. ap3 Tuberculosis screening: No symptoms or risk factors identified. 11:37 [facility] ED Fall Risk Assessment (Adult) History of falling in the last 3 months, ap3 including since admission No falls in past 3 months (0 pts) Confusion or Disorientation No (0 pts) Intoxicated or Sedated No (0 pts) Impaired Gait Yes (1 pt) Mobility Assist Device Used Yes (1 pt) Altered Elimination No (0 pt) Score/Fall Risk Level 0 - 2 = Low Risk Oriented to surroundings, Maintained a safe environment, Educated pt \\T\\ family on fall prevention, incl call for assistance when getting out of bed, Assessed \\T\\ reinforced patient's understanding of fall precautions, Hourly rounding (assess needs \\T\\ fall precautionary measures) done, Used ambulatory aids as needed (educated on \\T\\ assisted with), Used gait belt as appropriate. Assessment: 11:36 General: Appears in no apparent distress. Behavior is calm, cooperative, appropriate ap3 for age. Pain: Denies pain. Neuro: Level of Consciousness is awake, alert, obeys commands, Oriented to person, place, time, situation, Appropriate for age Gait is with cane. Neuro: Reports weakness in generalized weakness since over the last month. Cardiovascular: Patient's skin is warm and dry. Respiratory: Airway is patent Respiratory effort is even, unlabored, Respiratory pattern is regular, symmetrical. 12:59 Reassessment: patient ambulated unassisted without incident to restroom with cane. ap3 14:05 Reassessment: Patient and/or family updated on plan of care and expected duration. Pain rs5 level reassessed. Patient is alert, oriented x 3, equal unlabored respirations, skin warm/dry/pink. Vital Signs: 11:17 BP 103 / 86; Pulse 92; Resp 18 S; Temp 97.6(TE); Pulse Ox 96% on R/A; aa5 12:58 BP 111 / 67; Pulse 80; Resp 16; Pulse Ox 100% on R/A; ap3 14:34 BP 115 / 74; Pulse 77; Resp 17; Pulse Ox 98% on R/A; rs5 ED Course: 11:14 Patient arrived in ED. im 11:14 Saji Tony MD is Attending Physician. rt 11:17 Arm band placed on Patient placed in an exam room, on a stretcher. aa5 11:32 Triage completed. aa5 11:35 Kathryn Dunlap, KYLE is Primary Nurse. ap3 11:35 Initial lab(s) drawn, by me, sent to lab. Inserted saline lock: 22 gauge in right ap3 antecubital area, using aseptic technique. Blood collected. Flushed with 10 mL NS. 11:36 CPK Sent. ap3 11:36 Basic Metabolic Panel Sent. ap3 11:36 CBC with Diff Sent. ap3 11:36 LFT's Sent. ap3 11:36 Magnesium Sent. ap3 11:36 NT PRO-BNP Sent. ap3 11:36 Troponin HS Sent. ap3 11:38 Patient has correct armband on for positive identification. Bed in low position. Call ap3 light in reach. Side rails up X 1. Provided Education on: fall risk and call light use. Client placed on continuous cardiac and pulse oximetry monitoring. NIBP monitoring applied. bus driver/monitor on. Pulse ox on. NIBP on. 11:58 XRAY Chest (1 view) In Process Unspecified. EDMS 12:40 No provider procedures requiring assistance completed. rs5 13:18 Don Fatima MD is Hospitalizing Provider. rt 13:58 Ray Estrella, KYLE is Primary Nurse. rs5 14:27 1256 CM met with patient and Leta at bedside, in ED exam room. Patient ane identified by name and . Demographic sheet confirmed. Mr. Coleman and his Leta live together in a ones story house. Mr. Coleman states he just started using a cane to ambulate. He has recently has a change in ROM of his right foot. He states, " I call it foot drop. It is the same leg as I had a knee replacement." 1302 Dr. Tony at bedside to discuss results and plan of care. Dr. Tony explained patient has had a decline in kidney function and Dr. Vargas would like to admit him. 1314 Patient states he has an MPOA in place appointing Leta. Leta states she will bring it to the hospital tomorrow so that it a copy may be placed in the medical record. Other DME includes a walker from when he had his right knee replaced and they also have a built in shower seat. No HH, home oxygen or other medical services at this time. Patient states he did have HH after his knee sx and [facility] set it up for him. He goes on to explain that should he need PT again, he would prefer to go through [facility], with . and his have a vehicle and Leta states she can transport him home upon discharge. CM team will continue to follow and coordinate care. 14:30 IV discontinued, intact, bleeding controlled, No redness/swelling at site. Pressure rs5 dressing applied. Administered Medications: 11:43 Drug: NS 0.9% IV 1000 ml IV at 1 bolus Per protocol; 1000 mL bolus Route: IV; Rate: 1 rs5 bolus; Site: right antecubital; 13:01 Follow up: IV Status: Completed infusion; IV Intake: 1000ml rs5 14:02 Drug: Fluconazole PO 200 mg PO once Route: PO; rs5 14:30 Follow up: Response: No adverse reaction rs5 Medication: 11:38 VIS not applicable for this client. ap3 Intake: 13:01 IV: 1000ml; Total: 1000ml. rs5 Outcome: 13:19 Decision to Hospitalize by Provider. rt 14:30 Admitted to Med/surg rs5 14:30 Condition: stable 14:30 Instructed on the need for admit, Demonstrated understanding of instructions, 14:31 Patient left the ED. aa5 Signatures: Dispatcher [employer] EDMS Galilea Adame RN RN aa5 Kathryn Dunlap RN RN ap3 Saji Tony MD MD rt Ray Estrella RN RN rs5 Val Mueller Andie RN RN ane Corrections: (The following items were deleted from the chart) 14:27 13:58 1256 CM met with patient and Leta at bedside, in ED exam room. Patient ane identified by name and . Demographic sheet confirmed. Mr. Coleman and his Leta live together in a ones story house. Mr. Coleman states he just started using a cane to ambulate. He has recently has a change in ROM of his right foot. He states, " I call it foot drop. It is the same leg as I had a knee replacement." 1302 Dr. Tony at bedside to discuss results and plan of care. Dr. Tony explained patient has had a decline in kidney function and Dr. Vargas would like to admit him. 1314 Patient states he has an MPOA in place appointing Leta. Leta states she will bring it to the hospital tomorrow so that it a copy may be placed in the medical record. Other DME includes a walker from when he had his right knee replaced and they also have a built in shower seat. No HH, home oxygen or other medical services at this time. Patient states he did have HH after his knee sx and [facility] set it up for him. He goes on to explain that should he need PT again, he would prefer to go through [facility], with . and his have a vehicle and Leta states she can transport him home upon discharge. CM team will continue to follow and coordinate care. ane 14:30 14:27 1256 CM met with patient and Leta at bedside, in ED exam room. Patient ane identified by name and . Demographic sheet confirmed. Mr. Coleman and his Leta live together in a ones story house. Mr. Coleman states he just started using a cane to ambulate. He has recently has a change in ROM of his right foot. He states, " I call it foot drop. It is the same leg as I had a knee replacement." 1302 Dr. Tony at bedside to discuss results and plan of care. Dr. Tony explained patient has had a decline in kidney function and Dr. Vargas would like to admit him. 1314 Patient states he has an MPOA in place appointing Leta. Leta states she will bring it to the hospital tomorrow so that it a copy may be placed in the medical record. Other DME includes a walker from when he had his right knee replaced and they also have a built in shower seat. No HH, home oxygen or other medical services at this time. Patient states he did have HH after his knee sx and [facility] set it up for him. He goes on to explain that should he need PT again, he would prefer to go through [facility], with . and his have a vehicle and Leta states she can transport him home upon discharge. CM team will continue to follow and coordinate care. ane
[2024-05-18] MEDS ORDERED: FLUCONAZOLE 100 MG TAB ONE (13:51)
[2024-05-18 16:29] VITALS: BMI 25.0
[2024-05-18] MEDS: NA CHLORIDE 0.9% 1,000 ML IV SCH (16:41)
[2024-05-18] MEDS: INSULIN REGULAR (HUMAN) 100 UNIT/ML SQ SCH (17:45)
--- NOTE | 2024-05-18 20:14 | HP ---
Date of Admission: 05/18/2024 Chief Complaint: Feeling weak and tired. History Of Present Illness: This is an 83-year-old very pleasant male patient, who came to office fo r blood draw today and reported not feeling well, so he was seen immediately. The patient reports th at lately he has not felt good in last couple of weeks or so. He feels very tired and weak. Last we ek, he was working outside in the yard in hot weather and he felt like he could not even walk back in side the house because he was very weak. Denies any fall or injury. Denies any chest pain, but has had some feeling of low shortness of breath with this weakness lately. Denies any vomiting, diarrhea . No abdominal pain. No blood in stool. No black stool. The patient has had some nausea with this . After he was evaluated at office, he was instructed to go to the emergency room. I did call ER ph ysicians from the office soon after I evaluated the patient and discussed all the details and request ed further evaluation and after the patient was evaluated in the emergency room, all the test results discussed and decision was made to admit him to hospital. Allergies: NO KNOWN ALLERGIES. Medications: Aspirin 81 mg daily, cholestyramine powder 1 pack mixed with water and drink it 2 times a day, colchicine 0.6 mg 2 times a day as needed for gout, Farxiga 10 mg daily in morning with break fast, fluconazole 200 mg daily, gabapentin 100 mg 2 times a day, Toujeo 40 units subcutaneous injecti on daily in morning, lisinopril 5 mg daily in morning, mesalamine 1.2 g takes 1 tablet 2 times a day, Metamucil fiber gummies 3 fiber gummies daily, and rosuvastatin 10 mg once a week. Review of Systems: Constitutional: As mentioned above. GI: As mentioned above. All other systems reviewed and negative. Past Medical History: Significant for type 2 diabetes mellitus, hypertension, mixed hyperlipidemia, coronary artery disease, carotid artery stenosis on right side, gastroesophageal reflux disease, dive rticulosis, chronic kidney disease stage IIIA, benign prostatic hypertrophy, and insomnia. 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 Family History: Father had OK, mother had lung cancer, and brother with hypertension. Social History: Negative for smoking and alcohol use. Physical Examination: Vital Signs: At office, his supine blood pressure was 98/68, sitting blood pressure 90/52, standing blood pressure 88/52, weight 178.6 pounds, height 70 inches, temperature 97.3, pulse 92, respiratory rate 18. General: Awake, alert, oriented, not in distress. HEENT: Head atraumatic, normocephalic. Conjunctivae nonerythematous. Sclerae white. Mouth, no thr ush or edema noted. Ears/Nose, no mass, lesion, discharge noted. Neck: Supple. No JVD, lymph nodes, bruit, thyromegaly noted. Lungs: Bilateral good equal air entry. Clear to auscultation. No rhonchi. No rales. Heart: Normal heart sounds, no murmur or gallop. Abdomen: Soft, bowel sounds normal. No guarding, rigidity, tenderness, mass, hepatosplenomegaly, dis tention, or bruit noted. Extremities: No leg edema. No calf tenderness. Skin: No rash, ulcer, cellulitis. Lymphatics: No lymph node enlargement in neck, supraclavicular, infraclavicular region. Neuro: No focal neurological deficit. Chest: Unremarkable. External Genitalia: Deferred. Rectal: Deferred. Laboratory Data: Urinalysis was unremarkable. Chest x-ray, no acute intrathoracic changes. BNP 309 . Troponin 16.8. Liver function tests normal. Sodium 134, potassium 5.1, chloride 107, bicarb 22, BUN 63, creatinine 2.11, glucose 233. His last creatinine was 1.3 in January of this year, that is his baseline creatinine. Today, white count 12.9, hemoglobin 17.7, platelets 254. Impression: 1.Acute kidney injury. 2.Volume depletion. 3.Type 2 diabetes mellitus. 4.Hypertension. 5.Mixed hyperlipidemia. 6.Coronary artery disease. 7.Right carotid artery stenosis. 8.Gastroesophageal reflux disease. 9.Diverticulosis. 10.Benign prostatic hypertrophy. 11.Insomnia. Plan: We will go ahead and admit the patient to hospital for further evaluation and management of th is problem. The patient is appropriate for inpatient and [facility] We will start him on IV fluid for acute kidney injury and volume depletion problem. Monitor elec trolytes and renal function with blood work tomorrow. For diabetes, we will manage it with sliding s rhina insulin per order. For his hypertension, we will not give any antihypertensive medication at th is point. Monitor blood pressure and consider medication at appropriate time. For hyperlipidemia, mason stark takes rosuvastatin once a week. No need for any intervention on it. The patient is on lifelong an tifungal medication fluconazole per his Infectious Disease and industrial relations specialist in [place] and mason stark should continue that. DVT prophylaxis will be given per order. Total time spent today, of course, 90 minutes including initial evaluation at office, review of prior office record, communication with emergency room physician 2 different times, and performing evaluation and management for this hospit al admission. I will see him tomorrow morning for followup. BENNY/MODL Voice ID: [id number]
[2024-05-19 04:54] LABS: Absolute Lymphocytes (CBC) 1.4 K/uL (0.7-4.9); Absolute Monocytes 0.6 K/uL (0.1-1.3); Absolute Neutrophil 7.6 K/uL (1.8-8.0); Basophils % 0.1 % (0-1.3); Eosinophils % 0.5 % (0-4.4); Hematocrit 46.7 % (39.6-49.0); Hemoglobin 15.6 g/dL (13.6-17.9); Lymphocytes % 14.7 % (15.3-44.8); MCH 31.9 pg (27.0-35.0); MCHC 33.3 g/dL (32.0-36.0); MCV 95.6 fL (80-100); MPV 7.6 fL (7.6-11.3); Monocytes % 5.8 % (3.3-12.3); Neutrophils % 78.9 % (41.7-73.7); Platelets 233 thou/uL (152-406); RBC Red Blood Cell Count 4.89 M/uL (4.33-5.43); Red Cell Distribution Width 13.6 % (12.1-15.2)
[2024-05-19 05:22] LABS: Anion Gap 11.7 mEq/L (5.0-15.0); Potassium 5.7 mEq/L (3.5-5.1)
[2024-05-19] MEDS: SOD POLYSTYREN SUL 15 GM/60 ML UCUP PO ONE (06:20)
--- NOTE | 2024-05-19 08:27 | RAD REPORT ---
EXAM DESCRIPTION: CTAbdomen Pelvis Wo Contrast - 05/19/2024 8:13 am CLINICAL HISTORY: weight loss COMPARISON: Abdomen Pelvis Wo Contrast dated 06/09/2020 TECHNIQUE: CT of the abdomen and pelvis was performed without contrast. All CT scans are performed using dose optimization technique as appropriate and may include automated exposure control or mA/KV adjustment according to patient size. FINDINGS: Lower chest: Coronary calcifications. Aortic valve calcifications. Liver: No acute abnormality or suspicious lesions. Biliary: Cholelithiasis. No CT is acute cholecystitis. Stomach: No significant focal abnormality. Duodenum: No significant focal abnormality. Pancreas: Pancreatic atrophy. Spleen: No significant abnormality. Adrenal: No suspicious lesions. Kidney/ureter: No hydronephrosis. No renal calculi. Small intermediate attenuation partially exophyti c lesion off of the left kidney measuring 11 millimeters, previously under 4 millimeters. . Right antonio al cyst is also present measuring 1.9 cm which has increased in size as well . . Left nephrectomy. Retroperitoneum: No retroperitoneal adenopathy.Surgical changes including fat necrosis in the left po sterior pararenal space. Vascular: Atherosclerosis. Bowel: No significant focal abnormality. Peritoneum: Fat containing bilateral inguinal hernias. Small fat containing umbilical hernia. Bladder: Grossly unremarkable. Reproductive: Mild prostatomegaly . Bones: No acute fracture. Multilevel degenerative changes are present in the spine. Other: n/a IMPRESSION: No acute intra-abdominal or pelvic finding. No specific CT findings to explain reported weight loss. Small intermediate attenuation right renal lesion which has increased in size since 06/09/2020. A sma ll solid in the upper cannot be excluded. Further evaluation with renal protocol CT or MRI is suggest ed.
[2024-05-19] MEDS: ASPIRIN EC 81 MG TAB PO SCH (08:39)
[2024-05-19] MEDS: FLUCONAZOLE 100 MG TAB PO SCH (08:40)
[2024-05-19] MEDS ORDERED: CHOLESTYRAMINE/ASP 4 GM/PKT PO SCH (09:00)
[2024-05-19] MEDS: ONDANSETRON 4 MG/2 ML VIAL IV PRN (10:46)
[2024-05-19] MEDS: CHOLESTYRAMINE/ASP 4 GM/PKT PO SCH (10:46)
[2024-05-19 11:19] VITALS: O2SAT 99
--- NOTE | 2024-05-19 21:36 | PN ---
Date of Progress Note: 05/19/2024 Subjective: The patient was seen this morning for followup. No new complaints or problems reported by the patient. He was lying in bed. Overall, feels better today than yesterday. No new complaints or problems reported overnight. Objective: Vital Signs: Reviewed. HEENT: Unremarkable. Lungs: Clear to auscultation. Heart: Sounds normal. Abdomen: Soft. Bowel sounds normal. No guarding, rigidity, tenderness, distention. Extremities: No leg edema. Laboratory Data: White count 9.7, hemoglobin 15.6, platelets 233. Sodium 140, potassium 5.7, chlori de 115, bicarb 19, BUN 52, creatinine 1.59, glucose 84. Impression: 1.Acute kidney injury. 2.Volume depletion. 3.Diabetes mellitus. 4.Nausea. 5.Hyperkalemia. Plan: We will go ahead and give 1 dose of Kayexalate. We will repeat potassium today and tomorrow m orning along with the renal function. CAT scan of the abdomen and pelvis without contrast was ordere d to be done today because of his weight loss and nausea problem. I will see him tomorrow for follow up, possible discharge to go home tomorrow. Zofran was ordered for nausea today and we will continue IV fluid. Continue diabetes management with sliding scale insulin per order. BENNY/MODL Voice ID: [id number] Report ID: [id number]
[2024-05-20 07:00] LABS: Anion Gap 5.5 mEq/L (5.0-15.0); Potassium 4.5 mEq/L (3.5-5.1)
[2024-05-20] MEDS: NA CHLORIDE 0.9% 1,000 ML IV SCH (08:37)
[2024-05-20] MEDS: AMLODIPINE 5 MG TAB PO SCH (08:38)
--- NOTE | 2024-05-20 13:49 | RAD REPORT ---
EXAM DESCRIPTION: US - Lower Extremity Arterial Bilat - 05/20/2024 1:39 pm CLINICAL HISTORY: Leg pain COMPARISON: None FINDINGS: Right and left common femoral and superficial femoral arterial waveforms triphasic Right and left popliteal, posterior tibial and dorsalis pedis arterial waveforms biphasic No high-grade stenosis/occlusion seen Grayscale, color and spectral analysis performed on all vessels IMPRESSION: Mild bilateral lower extremity arterial disease
--- NOTE | 2024-05-20 14:04 | RAD REPORT ---
EXAM DESCRIPTION: MRI - Mri Abdomen W/Wo Cont - 05/20/2024 1:32 pm CLINICAL HISTORY: Renal mass COMPARISON: CT May 19, 2024 TECHNIQUE: Axial and coronal magnetic resonance imaging of kidneys performed. 17 cc MultiHance admin istered intravenously FINDINGS: 11 millimeter mass extends off of posterior aspect right kidney. It has intermediate signa l on T1 weighted sequences. Minimal enhancement of the wall. No enhancement of the central portions. Several additional simple and complex cysts right kidney. Largest 19 millimeters. No hydronephrosis Left nephrectomy No ascites IMPRESSION: 11 millimeter mass right kidney. It demonstrates minimal enhancement of the wall. This i s indeterminate but most likely represents a benign complex cyst. It is recommended that the patient have followup CT or MRI in 6 months for re-evaluation
--- NOTE | 2024-05-20 20:24 | PN ---
Date of Progress Note: 05/20/2024 Subjective: The patient was seen this morning for followup. No new complaints or problems reported by the patient. He was feeling overall better compared to before. Objective: Vital Signs: Reviewed. HEENT: Unremarkable. Lungs: Clear to auscultation. Heart: Sounds normal. Abdomen: Soft. Bowel sounds normal. No guarding, rigidity, tenderness, distention. Extremities: No leg edema. Peripheral pulses, 1+ dorsalis pedis artery pulsation on both lower extr emity and the patient has right footdrop. Laboratory Data: Today, sodium 140, potassium 4.5, chloride 117, bicarb 22, BUN 34, creatinine 1.24, glucose 86. Last night, his glucose was 56 and he had symptoms due to hypoglycemia, which was corre cted by nursing staff. Impression: 1.Acute kidney injury. 2.Volume depletion. 3.Type 2 diabetes mellitus, uncontrolled. 4.Right footdrop. 5.Peripheral vascular disease. 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 Continue IV fluid, but reduce rate per order. We will also get arter ial Doppler on both lower extremities. The patient will need Neurology consultation for right footdr op. Lately, the patient is having dyspnea with exertion, so I have ordered echocardiogram to evaluat e left ventricular ejection fraction. The patient's renal function has improved. Plan is to see him tomorrow morning with followup on all this pending test results and possible discharge to go home tomorrow and details of plan of treatment discussed with him. BENNY/MODL Voice ID: [id number] Report ID: [id number]
--- NOTE | 2024-05-21 06:49 | ECHO ---
HEIGHT: 5 ft 10 in WEIGHT: 174 lb 0 oz DATE OF STUDY: 05/20/[address]: Don Fatima MD 2-DIMENSIONAL: YES M.MODE: YES DOPPLER: YES COLOR FLOW: YES TDS: PORTABLE: YES DEFINITY: BUBBLE STUDY: DIAGNOSIS: DYSPNEA CARDIAC HISTORY: CATHERIZATION: YES SURGERY: NO PROSTHETIC VALVE: NO PACEMAKER: NO MEASUREMENTS (cm) DIASTOLIC (NORMALS) SYSTOLIC (NORMALS) IVSd 1.2 (0.6-1.2) LA Diam 2.4 (1.9-4.0) LVEF 50% LVIDd 3.7 (3.5-5.7) LVIDs 2.8 (2.0-3.5) %FS 25% LVPWd 1.2 (0.6-1.2) Ao Diam 2.9 (2.0-3.7) 2 DIMENSIONAL ASSESSMENT: RIGHT ATRIUM: NORMAL LEFT ATRIUM: NORMAL RIGHT VENTRICLE: NORMAL LEFT VENTRICLE: NORMAL TRICUSPID VALVE: MILD TRICUSPID REGURGITATION MITRAL VALVE: MILD MITRAL REGURGITATION PULMONIC VALVE: NORMAL AORTIC VALVE: HEAVILY CALCIFIED PERICARDIAL EFFUSION: NONE AORTIC ROOT: NORMAL LEFT VENTRICULAR WALL MOTION: NORMAL DOPPLER/COLOR FLOW: SEE BELOW COMMENTS: 1. LOW NORMAL LEFT VENTRICULAR EJECTION FRACTION 50% 2. NORMAL WALL MOTION 3. MILD TRICUSPID REGURGITATION 4. HEAVILY CALCIFIED AORTIC VALVE WITH MILD TO MODERATE AORTIC STENOSIS AND MILD AORTIC INSUFFICIENCY TECHNOLOGIST: HENRIK MOURA
[2024-05-21 08:54] VITALS: BP 154/90; TEMP 97.1
--- NOTE | 2024-05-21 09:48 | RAD REPORT ---
EXAM DESCRIPTION: MRI - Lumbar Spine Wo Con - 05/21/2024 9:39 am CLINICAL HISTORY: Right foot drop. Radiculopathy COMPARISON: None TECHNIQUE: Sagittal T1, T2 and STIR weighted sequences were obtained. Axial T1 and T2 sequences were obtained through the lumbar disc levels. FINDINGS: Mild spondylosis L1-2 Small right lateral disc herniation L2-3 nares the right neural foramina. Disc bulge, ligamentum flavum and facet hypertrophy at L3-4 narrow the thecal sac to 10 millimeters. Mild narrowing neural foramina bilaterally Slight posterior subluxation of L4 on L5 with disc thinning. Facet hypertrophy is present. Moderate n arrowing left neural foramina Small to moderate right posterolateral disc herniation L5-S1 displaces the right S1 nerve root supervisor paste plant iorly. IMPRESSION: Small to moderate right posterolateral disc herniation L5-S1 displaces the right S1 nerv e root posteriorly Small right lateral disc herniation L1-2
--- NOTE | 2024-05-21 23:33 | DS ---
Date of Discharge: 05/21/2024 Disposition: Discharged to go home. Physical Examination: HEENT: Unremarkable. Lungs: Clear to auscultation. Heart: Sounds normal. Abdomen: Soft. Bowel sounds normal. No guarding, rigidity, tenderness, distention. Extremities: No leg edema. Laboratory Data: Today, sodium 140, potassium 5, chloride 117, bicarb 21, BUN 30, creatinine 1.11, g lucose 125. Echocardiogram shows ejection fraction 50%, heavily calcified aortic wall with mild to m oderate aortic stenosis and mild aortic insufficiency. MRI of abdomen per kidney protocol shows 11 m m mass in the right kidney, likely benign complex cyst and we will follow up with serial imaging as o utpatient. Arterial Doppler of leg shows mild peripheral vascular disease. Chest x-ray, no acute in trathoracic changes. Urinalysis unremarkable. Upon admission, proBNP 309. Troponin 16.8. Liver fu nction tests normal. Sodium 134, potassium 5.1, chloride 107, bicarb 22, BUN 63, creatinine 2.11, gl ucose 233. Day after admission, potassium went up to 5.7. Hospital Course: This is an 83-year-old pleasant male patient, admitted to the hospital after he cam e into office and was sent to emergency room with complaints of feeling weak and tired. Please see d chacha H and P for more information. The patient was admitted to the hospital with acute kidney inj ury and volume depletion and it was corrected with IV fluid hydration. Overall, his condition improv ed and the patient also has right footdrop which he has noted it lately and informed me about it whil e he was in the hospital and on examination he definitely has right footdrop. He has some tingling a nd numbness on the bottom part of both feet consistent with diabetic neuropathy. This right footdrop will be evaluated with outpatient neurological consultation and today MRI of the lumbar spine was do ne and I will follow up on the results with him as outpatient. His hemoglobin A1c was 11.2, done as outpatient on the day of admission, indicating poorly controlled diabetes and we will refer him to en docrinologist on outpatient basis for further diabetes management. Final Diagnoses: 1.Acute kidney injury. 2.Volume depletion. 3.Diabetes mellitus with peripheral vascular disease. 4.Diabetes mellitus with peripheral neuropathy. 5.Diabetes mellitus, uncontrolled. 6.Hyperkalemia. 7.Hypertension. 8.Mixed hyperlipidemia. 9.Coronary artery disease. 10.Right carotid artery stenosis. 11.Gastroesophageal reflux disease. 12.Diverticulosis. 13.Insomnia. 14.Benign prostatic hypertrophy. Discharge Medications And Instructions: Continue all prior home medication except following changes: 1.Stop lisinopril. 2.Start pioglitazone 15 mg daily with breakfast. 3.Start your insulin Toujeo 20 units subcutaneous injection daily in morning for 3 days, then 25 uni ts daily for 3 days, then 30 units daily for 3 days, then 35 units daily for 3 days, then 40 units da crystal to continue as a maintenance dose and this was his maintenance dose prior to hospital admission. 4.Follow up at my office next week on 05/25/2024 and he already has this appointment scheduled. 5.The patient to keep himself well hydrated and drink 60 ounces water daily. Total time spent 45 minutes and that also includes discussion of all the test results and details reg arding plan of treatment with the patient and his who was in his room earlier today when I saw mason espinoza. BENNY/MODL Voice ID: [id number] Report ID: [id number]
== END 2024-05-21 10:24 | disposition home or self-care (01) | DRG 684 ==
LOC: ER 11:11 → ERHOLD 13:20 → 2ND 13:54
PROVIDERS: ADMIT Internal Medicine; ATTEND Internal Medicine
DX: N17.9 Acute kidney failure, unspecified (principal); E86.0 Dehydration; I12.9 Hypertensive chronic kidney disease with stage 1 through stage 4 chronic kidney disease, or unspecified chronic kidney disease; E11.65 Type 2 diabetes mellitus with hyperglycemia; E11.22 Type 2 diabetes mellitus with diabetic chronic kidney disease; N18.31 Chronic kidney disease, stage 3a; E11.42 Type 2 diabetes mellitus with diabetic polyneuropathy; E11.51 Type 2 diabetes mellitus with diabetic peripheral angiopathy without gangrene; E87.5 Hyperkalemia; E78.2 Mixed hyperlipidemia; I25.10 Atherosclerotic heart disease of native coronary artery without angina pectoris; I65.21 Occlusion and stenosis of right carotid artery; K21.9 Gastro-esophageal reflux disease without esophagitis; K57.90 Diverticulosis of intestine, part unspecified, without perforation or abscess without bleeding; G47.00 Insomnia, unspecified; N40.0 Benign prostatic hyperplasia without lower urinary tract symptoms; R06.00 Dyspnea, unspecified; R11.0 Nausea; M21.371 Foot drop, right foot; E11.649 Type 2 diabetes mellitus with hypoglycemia without coma; I35.2 Nonrheumatic aortic (valve) stenosis with insufficiency; N28.1 Cyst of kidney, acquired; R63.4 Abnormal weight loss; Z68.25 Body mass index [BMI] 25.0-25.9, adult; Z79.4 Long term (current) use of insulin; Z79.82 Long term (current) use of aspirin; Z79.899 Other long term (current) drug therapy; Z95.5 Presence of coronary angioplasty implant and graft; Z90.5 Acquired absence of kidney; Z82.49 Family history of ischemic heart disease and other diseases of the circulatory system; Z80.1 Family history of malignant neoplasm of trachea, bronchus and lung
CPT/HCPCS: 36415; 71045; 72148; 74176; 74183; 80048; 80076; 81001; 82550; 82947; 83735; 83880; 84132; 84484; 85025; 93005; 93306; 93925; 96360; 99285; A9577; J2405; J7030

== ENCOUNTER 2024-11-04 13:10 | Day surgery (SDC) | payer OTHER ==
--- NOTE | 2024-10-30 12:08 | RAD REPORT ---
EXAM: Chest Pa And Lat (2 Views) HISTORY: 83 years Male pre procedure COMPARISON: 05/18/2024 FINDINGS: LUNGS/PLEURA: The lungs are clear. No pleural effusions or pneumothorax. No pulmonary edema. Scarring in the right midlung. MEDIASTINUM: The mediastinal silhouette is within normal limits. CARDIAC: The cardiac silhouette is within normal limits. UPPER ABDOMEN: No significant abnormality. BONES: No acute abnormality. LINES/TUBES/OTHER: N/A IMPRESSION: No evidence of acute cardiopulmonary disease.
[2024-10-30 12:30] LABS: Absolute Eosinophils 0.2 K/uL (0-0.5); Absolute Lymphocytes (CBC) 3.1 K/uL (0.7-4.9); Absolute Monocytes 0.6 K/uL (0.1-1.3); Absolute Neutrophil 5.4 K/uL (1.8-8.0); Basophils % 0.1 % (0-1.3); Eosinophils % 2.5 % (0-4.4); Hematocrit 50.3 % (39.6-49.0); Hemoglobin 16.9 g/dL (13.6-17.9); Lymphocytes % 33.1 % (15.3-44.8); MCH 31.8 pg (27.0-35.0); MCHC 33.7 g/dL (32.0-36.0); MCV 94.4 fL (80-100); MPV 7.8 fL (7.6-11.3); Monocytes % 6.3 % (3.3-12.3); Nucleated Red Blood Cells % 0.1 % (0-0); Platelets 214 thou/uL (152-406); RBC Red Blood Cell Count 5.33 M/uL (4.33-5.43); Red Cell Distribution Width 13.1 % (12.1-15.2)
[2024-10-30 12:41] LABS: Anion Gap 8.7 mEq/L (5.0-15.0); Potassium 4.7 mEq/L (3.5-5.1)
[2024-10-30 12:43] LABS: PT Prothrombin Time 11.1 SECONDS (9.4-12.5); PTT, Activated Partial Thromb 32.3 SECONDS (24.3-36.9); Protime INR 1.06
--- NOTE | 2024-10-30 15:06 | EKG ---
Test Date: 2024-10-30 Test Time: 11:46:06 Aircraft Seat Upholsterer: CHENG MEASUREMENT RESULTS: Intervals: Rate: 54 [place]: 250 QRSD: 82 QT: 436 QTc: 413 [place]: P: 25 [place]: 250 QRS: 6 T: 0 INTERPRETIVE STATEMENTS: Sinus bradycardia with 1st degree AV block Otherwise normal ECG Compared to ECG 05/18/2024 11:37:20 Sinus rhythm no longer present Electronically Signed On 10-30-24 15:05:33 SCALE TESTER by Eleno Mcwilliams
[2024-11-04] MEDS ORDERED: NA CHLORIDE 0.9% 500 ML ONE (13:22)
[2024-11-04] MEDS ORDERED: HEPARIN 10,000 UNIT/10 ML VIAL IV ONE (15:25)
[2024-11-04] MEDS ORDERED: HEPA 1000U/500MLS 2,000 UNIT/1,000 ML BAG IV ONE (15:25)
[2024-11-04] MEDS ORDERED: ATROPINE SULF 1 MG/10 ML SYR IV ONE (15:26)
[2024-11-04] MEDS ORDERED: VERAPAMIL HCL 10 MG/4 ML VIAL IV ONE (15:26)
[2024-11-04] MEDS ORDERED: MIDAZOLAM HCL 2 MG/2 ML INJ ONE (15:26)
[2024-11-04] MEDS ORDERED: LIDOCAINE 1% 20 ML MDV ONE (15:26)
[2024-11-04] MEDS ORDERED: FENTANYL CITR 100 MCG/2 ML ONE (15:27)
[2024-11-04] MEDS ORDERED: HEPARIN 5000 UNIT/ML 1 ML VIAL ONE (15:27)
[2024-11-04] MEDS ORDERED: TICAGRELOR 90 MG TABLET PO ONE (15:27)
[2024-11-04] MEDS ORDERED: ASPIRIN 325 MG TAB ONE (15:27)
[2024-11-04] MEDS ORDERED: CLOPIDOGREL 75 MG TABLET ONE (15:27)
[2024-11-04 17:23] VITALS: TEMP 98.7
[2024-11-04 18:02] VITALS: O2SAT 99
[2024-11-04 18:38] VITALS: BP 142/64
--- NOTE | 2024-11-05 02:49 | OP ---
Date of Procedure: 11/04/2024 Surgeon: CARA ALLEN Procedure Performed: 1. Coronary angiogram. 2. Left heart catheterization. 3. Right heart catheterization. Indication: 1. Aortic valve stenosis evaluation. 2. Unstable angina. Access: Right radial artery 6-Honduran, closed with TR band. Complications: None. Bleedin mL. Anesthesia: Total sedation time was 1 hour, used fentanyl and Versed. Description Of Procedure: After risks, benefits, and alternatives were explained, the patient agreed to procedure and signed informed consent. The patient was brought into cardiac catheterization labo [facility], prepped and draped in usual sterile fashion. Then, I accessed right radial artery using pedi atric micropuncture kit, placed 6-Honduran Slender sheath, and accessed right IJ using micropuncture ki t and ultrasound guidance, placed a 7-Honduran [place] sheath and then took a balloon tipped 7-Honduran [place] catheter through the IJ access into the right atrium, right ventricle, pulmonary artery and wedg e, obtained waveform and pressure, and obtained cardiac output thermodilution method and then exchang ed for a 5-Honduran [place] 4 catheter, engaged left main, took standard views and then the RCA, took sta ndard views and the catheter was pushed over the wire into the LV, measured LVEDP, pullback recorded small gradient and then removed the catheter and the sheath and placed TR band with good hemostasis. I removed the IJ sheath. Manual pressure was used for closure with good hemostasis. Findings: Coronary angiogram: 1. Left main is normal. 2. LAD; proximal diffuse 30%, mid 40% diffuse and mid to distal 30% diffuse, diagonal branches with l uminal irregularities. 3. Left circumflex very large and dominant supplying all the inferior wall. Has proximal 20%, and th e OM branch has mid 50% stenosis. Rest of the left circumflex is normal. 4. RCA has a stent apparently, but it is a ROSTER CLERK ostially and there are collaterals from the LAD to the RCA. Right heart catheterization numbers: RA pressure is 2, RV pressure is 12/1, mean of 2. PA pressure is 19/6, mean of 11. Pulmonary wedge pressure was right at 5. LVEDP was 18, 5 and 10 mmHg. Cardiac output was 4 L/minute. Gradient across the aortic valve was 10 mmHg and valve area was 3.5 cm2. Conclusion: 1. ROSTER CLERK of the RCA, but it is small and nondominant and there are collaterals from the LAD. 2. Moderate coronary artery disease elsewhere, moderate to severe. 3. No significant aortic valve stenosis. Recommendation: Medical management. Plan: To obtain stress test on him in 3 months. SR/MODL Voice ID: [id number] Report ID: [id number]
== END 2024-11-04 18:43 | disposition home or self-care (01) ==
LOC: CCL 13:10
PROVIDERS: ATTEND Internal Medicine
DX: I25.110 Atherosclerotic heart disease of native coronary artery with unstable angina pectoris (principal); I25.82 Chronic total occlusion of coronary artery; I35.0 Nonrheumatic aortic (valve) stenosis; I65.21 Occlusion and stenosis of right carotid artery; I10 Essential (primary) hypertension; E78.5 Hyperlipidemia, unspecified; E11.9 Type 2 diabetes mellitus without complications; Z79.82 Long term (current) use of aspirin; Z79.84 Long term (current) use of oral hypoglycemic drugs; Z79.899 Other long term (current) drug therapy; Z82.49 Family history of ischemic heart disease and other diseases of the circulatory system
CPT/HCPCS: 36415; 71046; 76937; 80048; 82947; 85025; 85610; 85730; 93005; 93460; 99152; 99153; C1893; J0461; J1644; J2003; J2250; J3010; J7040; Q9966